=== PATIENT | female | born 1975 | race Caucasian/White ===

== ENCOUNTER 2017-12-28 13:20 | Outpatient (CLI) | payer BC | END 2017-12-28 13:21 | disposition short-term general hospital (02) | LOC: EMS 13:20 | PROVIDERS: ATTEND Surgery | DX: R10.9 Unspecified abdominal pain (principal); R19.5 Other fecal abnormalities; R11.10 Vomiting, unspecified; R73.09 Other abnormal glucose; R00.0 Tachycardia, unspecified | CPT/HCPCS: A0425; A0427 ==

== ENCOUNTER 2018-03-27 17:17 | Outpatient (CLI) | payer BC ==
--- NOTE | 2018-03-27 17:23 | CONSULTATION NOTE ---
Palliative Care Consultation - Referral Referring Provider: Dr. Landon Deleon Time of Visit: [id number] Referral setting: Home (patient with wound vac; significant pain; and to f) Referral Reason: Pain of neoplastic origin/Met Colon Cancer/s/p debridement right hip/thigh - Information Sources Records reviewed: RN notes reviewed, Previous records reviewed History/Review of Systems obtained from: Patient Exam limitations: No limitations - History of Present Illness Brief History of Present Illness: This is a 42-year-old woman with an extensive past surgical history including in 2014 presenting with septis and capillary leak syndrome in 2014, with ischemic bowel requiring a subtotal colectomy with an ileostomy, diagnosis of rectosigmoid adenocarcinoma. She had multiple exploratory laps during her complicated course and eventual closure of her abdominal wound with a reversal of her ileostomy a few months later. She received oxaliplatin and capectabine after, but oxalipaltin was discontinued due to severe neuropathy. She developed recurrent disease in 2016 with 5 lesions in right lobe, and underwent a right hepatectomy with complications including infection/abcess, DVT 's and PE, now on enoxparin. Recived 4 months of irnotecan, capecitabine and Avastin post operatively. She continued with elevated CEA, in 12/2017 there was an attempted resection of adnexal metastasis, but were unresectable because of extensive adhesions. She developed severe abdominal and right thigh pain 02/16 and seen at [facility] and transferred to . She was hospitalized from 02/17-02/26 with delay in discharge due per her report, to obtaining home wound vac and pain control. She was found to hav"perforated viscus in her pelvis that tracked down her right gluteus and thigh". She had a series of procedures to include incisions, debridement, and chi drains, resulting in wounds which are being treated with the main left buttock wound with a wound vac. Patient was receiving a palliative oral treatment TAS-102/Lonsurf for her metastatic colon cancer, but due to the above course these last few weeks it has been on hold. Patient has had significant difficulty with acute on chronic pain, escalating with poor response to her oral opioids as well as escalating anxiety. She does have significant fatigue, appears with depressed symptoms and anxiety, and is anxious to get rid of the wound VAC as well as resume treatment. She does feel she has a good relationship with her oncologist, and sees him in two weeks. She cannot resume treatment given the SE of myelosuppression until off AB and healing more progressed. Medical/Surgical History - Past Medical History Cardiovascular: reports: Pulmonary embolism Respiratory: reports: Shortness of breath Endocrine/Autoimmune: reports: Type 1 diabetes (reports she is "somewhere in between type 1/2" suspect some underlying autoimmune component) GI: reports: Other (prior to this hospitalization was have severe and frequent loose stools, now manageable 4-6 day vs up to 20) HEENT: reports: Other (allergies) Psych: reports: Depression, Anxiety Musculoskeletal: reports: Chronic back pain MRSA Hx?: No - Past Surgical History General: reports: Cholecystectomy, Bowel surgery, Hiatal hernia repair, Liver surgery, Colonoscopy - Substance History Use: Uses substance without health or social issues: Tobacco Social History - Living Situation Living arrangement: At home Living Situation: With spouse/s.o., With family (Lives at home with her , he is currently taking time off as he is quite concerned regarding supporting her and her health. She also has to teenage children currently off for the summer. 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 Her parents live nearby, she has lived in this community for most of her life, does have an extensive support network.) Family History - Family History Family History: Mother: Alive and Well, Father: Alive and Well Medications/Allergies - Medications Home Medications: Ambulatory Orders Medication Instructions Recorded Confirmed Acetaminophen 650 mg PO Q4HR PRN MDD 4000 mg 03/28/18 03/28/18 Enoxaparin [Lovenox] 80 mg SQ DAILY 03/28/18 03/28/18 Hydromorphone HCl 2 - 3 tab PO Q4HR PRN 03/28/18 03/28/18 Insulin Glargine [Lantus Solostar] 5 unit SQ QDBREAKFAST 03/28/18 03/28/18 Insulin Glargine [Lantus Solostar] 18 unit SQ DAILY PM 03/28/18 03/28/18 Insulin Lispro [Humalog Tomy 1 unit SQ AC MDD sliding scale 03/28/18 03/28/18 Kwikpen] Lidocaine [Topicaine 5] 1 applic TOP .MWF 03/28/18 03/28/18 Methadone HCl 5 mg PO BID MDD titrating 03/28/18 03/28/18 Naloxone HCl [Narcan] 1 spray INH PRN PRN 03/28/18 03/28/18 Oxycodone HCl 20 - 40 mg PO Q4HR PRN MDD 10 tabs 03/28/18 03/28/18 traZODone [Desyrel] 50 - 150 mg PO DAILY PM PRN 03/28/18 03/28/18 - Allergies Allergies/Adverse Reactions: Allergies Allergy/AdvReac Type Severity Reaction Status Date / Time Penicillins Allergy Unknown Verified 03/28/18 15:16 quetiapine [From Seroquel] AdvReac Unknown Verified 03/28/18 15:17 Review of Systems - Constitutional Constitutional: reports: Fatigue, Chills (occasional), Other (very thin; reports had gained some wait back 116). denies: Fever - Ears, Nose & Throat Ears, Nose & Throat: reports: Nasal congestion (attributes to allergies) - Cardiovascular Cardiovascular: reports: Decr. exercise tolerance. denies: Chest pain, Lightheadedness - Respiratory Respiratory: reports: Cough (attributes to allergies currently), SOB with exertion. denies: SOB at rest - Gastrointestinal Gastrointestinal: reports: Abdominal pain, Good appetite. denies: Nausea, Reflux/heartburn - Musculoskeletal Musculoskeletal: reports: Back pain, Muscle aches, Muscle weakness - Integumentary Integumentary: reports: Other (wound vac and thigh dressings intact; managed by HH RN; did review pictures does appear to be healing though concern for new sinus tract) - Psychiatric Psychiatric: reports: Depression, Anxiety - Endocrine Endocrine: reports: Other (Diabetes Type I; reports blood sugar at 180 this am) - Hematologic/Lymphatic Hematologic/Lymphatic: reports: Recurrent infections (finished AB for cellulitis in wound) - All Other Systems All Other Systems: reports: Reviewed and negative Physical Exam - Vital Signs Temperature: 98.1 C Pulse Rate: 76 Respiratory Rate: 20 O2 Saturation: 98 (ra @ rest) Blood Pressure: 122/80 - Physical Exam General Appearance: positive: Alert, Moderate distress (patient with escalating pain and discomfort during visit; improved and relaxed after medications though not sedated after 40 mg oxycodone/8 mg hydromorphone), Anxious Eyes Bilateral: positive: Normal inspection ENT: positive: No signs of dehydration Neck: positive: Trachea midline Cardiovascular: positive: Regular rate & rhythm Respiratory: positive: Diminished in bases (left base), Wheezes (exp wheeze mid left) Abdomen: positive: Abnml bowel sounds (some hyperactive), Tenderness, Other ( scarred and with abd. hernias; soft) Skin: positive: Wound (covered with dressings/wound vac), Other (diaz) Extremities: positive: No pedal edema Neurologic/Psychiatric: positive: Oriented x3, Depressed mood/affect (tearful at times) Palliative Care - POLST Patient has POLST: No Pain: Pain worsening, Location (Patient reports escalating pain in right thigh and buttocks area, worsened with days of dressing change, manipulation of wound and application of wound VAC. Has had some improvement with the addition of lidocaine into the wound bed, but still requiring significantly high amounts of opioid. Reports she does have some vague abdominal pain and discomfort, lower back pain chronic in nature. Pain is also worse when she is more active, she does carry the wound VAC around. Reports she has been using oxycodone 20 mg 2 tabs up to 160 mg a day, and the hydrocodone 4 mg tabs up to 24 mg a day. She has escalating pain particularly at night at times, which interferes in her sleep and decreases her ability for tolerating it.She perceives hydrocodone works fairly fast and immediately, and the combination of the oxycodone has an extended duration. She often needs to repeat her pain meds during dressing change despite taking prior to nurses arrival) Tiredness/Fatigue: Moderate (4-6) Drowsiness/Sedation: None Nausea: Mild (1-3) Depression: Moderate (4-6) Anxiety: Severe (7-10) Dyspnea: Mild (1-3) Anorexia: Mild (1-3), Weight loss Sleep: Sleeps poorly Constipation: No Performance Status: Patient is able to ambulate, adjust her own ADLs. She does have difficulty secondary to the wound VAC and pain getting comfortable, is up and down frequently. Does feel some of her strength has returned since surgery, though not back to her baseline. PPS 70% - Palliative Care Discussion: Patient does express feeling overwhelmed related to her medical care and complications over the last several weeks. Her poor pain control has added to her distress, poor sleep patterns, and increased anxiety. Patient does admit to depressive symptoms, she is worried and concerned about her family and their adjustment to her illness. She does appear to have some insight into the seriousness of her illness, though we did not explore prognosis or her understanding. She did explore her fairly dramatic story, and now that she has been through, and concern for what might be ahead. Her goals are to get her pain under control, heal her current wounds, and resume chemotherapy. She does feel like she has good relationship with her oncologist, and long-term relationship with her PCP. Did not explore further any advanced care planning, this appointment was to establish rapport and address her primary concern of pain management Results - Lab Results Lab results reviewed: Yes Lab and Imaging Results: CEA 486.1 03/06 Impression and Recommendations - Palliative Care Impression: This is a jeffy 42-year-old woman with metastatic colon carcinoma, with metastases to the liver since resected in 2016, now with residual adnexal mass, currently on third line palliative oral chemotherapy on hold. She has an extensive history of multiple abdominal surgeries, including history of an ileostomy and several prolonged hospital stays. Her initial diagnosis was in 2014She has most recently been hospitalized for complications of perforation, and right thigh/buttock wounds as a result of debridement for abcess/cellulits/ myositis. Recommendations/Counseling Done: 1. Acute on chronic pain. Patient does attribute most of pain to her wound back and right leg and thigh, would agree most of her acute pain is attributed to this. It is distressful and difficult, she does have high pain tolerance as well as high tolerance for opioids. She does complain of low persistent back pain as well as vague abdominal pain. Given her metastatic disease, residual mass in her abdomen, plus all her adhesions I suspect she does have some background pain that will need continued treatment. She has been escalating her opioid use, I suspect some of this is anxiety as well as acute pain. Patient does not present with any signs or symptoms of infection, but has had a complicated course. Counseling regarding would recommend with titrate her over to methadone, even with wound healing, I suspect she is going to need ongoing opioid support. In agreement to work with palliative care for pain control, current equal analgesic dosing would be around 50 mg of methadone in 24 hours, but given the nature and concern for acute pain will titrate up slowly, and follow course. Patient has been instructed to log and reflect on current pain medication use, has been taking from bottles with little accountability, encouraged to notice patterns and exacerbating factors as well. Will start her slow as the weekend is coming up, at methadone 10 mg tabs half tab=5mg twice daily, and will titrate her more aggressively starting Saturday. Counseling provided regarding opioid safety, including storage, counting the pills on a regular basis, as well as report and working with [employer]PERATOR closely to monitor for side effects, effectiveness, and provide oversight. She is in agreement with this plan verbally, these instructions were written out and sent to her via email, she did acknowledge receiving them. Did provide her with Rx methadone 10 mg tabs # 90; oxycodone 20 mg tabs # 300; hydromorphone 4 mg tabs # 300. Goal to transition to methadone, diminish BTP dosing, and phase out to one medication for BTP dosing in future. 2. Anxiety. This appears multifactorial in origin as well, is concerned about her family and the response to her treatment and cancer. Is exploring options related to counseling through [facility], joint visit with social security benefits interviewer who will assist with locating resources. Patient is expecting to return to work, did encourage given the seriousness of her illness to consider looking at SSI Disabililty. Has many medical bills/co-pays, and decreased income. 3. Depression. Given the length and content of her visit, I will explore this further, patient may benefit from antidepressant or in conjunction with perhaps to Loxitane to help with her pain management. 4. Advanced care planning. This visit was spent on building rapport, focusing on pain management and quality of life issues. Will explore further in the future, patient does have serious illness, on third line chemotherapy, and suspect poor prognosis the patient has been quite resilient and "a fighter". Given the fact her oncology care is of great distance, will benefit from support of palliative care for ongoing pain and symptom management and anticipatory guidance. Time Spent: 90 minutes with greater than 50% of this done in counseling regarding pain and symptom management, establishing rapport, identification of goals of care and anticipatory guidance
== END 2018-03-27 17:18 | disposition home or self-care (01) ==
LOC: PC 17:17
PROVIDERS: ATTEND Nurse Practitioner Adult Health
DX: Z51.5 Encounter for palliative care (principal); G89.29 Other chronic pain; M54.9 Dorsalgia, unspecified; F41.9 Anxiety disorder, unspecified; F32.9 Major depressive disorder, single episode, unspecified; E10.9 Type 1 diabetes mellitus without complications; Z72.0 Tobacco use; Z79.4 Long term (current) use of insulin; Z79.891 Long term (current) use of opiate analgesic; C18.9 Malignant neoplasm of colon, unspecified; C78.7 Secondary malignant neoplasm of liver and intrahepatic bile duct; R19.00 Intra-abdominal and pelvic swelling, mass and lump, unspecified site
CPT/HCPCS: 99345

== ENCOUNTER 2018-04-04 08:00 | Outpatient (CLI) | payer BC ==
[2018-04-04 12:37] LABS: BILIRUBIN,URINE NEGATIVE (NEGATIVE); GLUCOSE, URINE (UA) 250 mg/dL (NEGATIVE); KETONES,URINE (UA) NEGATIVE (NEGATIVE); LEUKOCYTE ESTERASE, URINE NEGATIVE (NEGATIVE); NITRITE,URINE NEGATIVE (NEGATIVE); OCCULT BLOOD,URINE NEGATIVE (NEGATIVE); PROTEIN,URINE TRACE mg/dL (NEGATIVE); UROBILINOGEN,URINE 0.2 (NORMAL) E.U./dL (NORMAL)
[2018-04-04 12:39] LABS: CLARITY,URINE HAZY (CLEAR)
[2018-04-04 13:18] LABS: BACTERIA,URINE Moderate /HPF (None Seen); CRYSTALS,URINE >50 Calcium Oxalate /LPF; RBC,URINE 0-5 /HPF (0-5); SQUAMOUS EPITHELIAL CELL,UR MANY Squamous (<= Few)
== END 2018-04-04 08:01 | disposition home or self-care (01) ==
LOC: LAB.N 08:00
PROVIDERS: ATTEND Nurse Practitioner Adult Health
DX: R30.0 Dysuria (principal)
CPT/HCPCS: 81001; 87086

== ENCOUNTER 2018-04-10 13:10 | Outpatient (CLI) | payer BC ==
--- NOTE | 2018-04-10 19:38 | CONSULTATION NOTE ---
Palliative Care Follow Up - Referral Referring Provider: Dr. Deleon Time of Visit: 4732-5242 Referral setting: Home Referral Reason: Metastatic Colon Cancer/Pain of neoplastic origin - Information Sources Records reviewed: Previous records reviewed History/Review of Systems obtained from: Patient Exam limitations: No limitations - History of Present Illness Update Brief HPI Update: This is a 42-year-old woman with metastatic colon cancer, who has known tumor in her retroperitoneal area of additional adnexal metastases, these were unresectable due to extensive pelvic disease. She was originally treated in 2015 for stage II sigmoid cancer, developed recurrent disease in 2017 with right hepatic metastases, and now has right adnexal mass documented with a failed attempt at resection. In the context of this she also developed in December 2017 pelvic abscess requiring external drains, and diagnosis of myofascial cellulitis/myositis requiring debridement. Patient does have fairly high levels of pain retroperitoneal, reports particularly in her right thigh that has been problematic, though some improvement with removal of the wound VAC but has some fairly inconsistent reporting regarding her opioid use. She reports prior to the removal she was using more than alloted 10/10 for breakthrough pain. Patient was started on methadone, has been titrating up slowly was to be on methadone 10 mg TID, on visit today though has reportedly used her months supply of methadone 10 mg confirmed with ArQule 90# prescribed received 30#, oxycodone 20 mg 300# tabs, and hydromorphone 4 mg #300 tabs. This is over a 15 day period. Discussed patient due to see oncologist on next Saturday, hoping to start her oral chemotherapy medications, though she reports she has "tossed" those out, though it is documented in her records she has the medications for the next cycle. She is hoping to return to work on 05/07 "without" limitations, discussed other treatment options for management of her pain. In agreement to titrate up Methadone to 15 mg TID, with adding 5 mg every few days, adding gabapentin 300 mg TID with titration, and to use only one medication for breakthrough pain. Will add oxycodone 30 mg 1/2-1 tab every three hours for BTP and not to exceed 10 tabs/24 hours. She is to call if need more rapid titration, reviewed concerns regarding opioid safety and need to track medications. Patient without signs of lethargy, noted pin point pupils, pain behaviors with sitting and walking. Had reportedly run out of the methadone yesterday and down to a few tabs of hydromorphone and oxycodone. Social History - Living Situation Living arrangement: At home Living Situation: With spouse/s.o., With family (has two teenage children at home; has not followed up on counseling resources for them) Medications/Allergies - Medications Home Medications: Ambulatory Orders Medication Instructions Recorded Confirmed Acetaminophen 650 mg PO Q4HR PRN MDD 4000 mg 03/28/18 04/11/18 Enoxaparin [Lovenox] 80 mg SQ DAILY 03/28/18 04/11/18 Insulin Glargine [Lantus Solostar] 5 unit SQ QDBREAKFAST 03/28/18 04/11/18 Insulin Glargine [Lantus Solostar] 18 unit SQ DAILY PM 03/28/18 04/11/18 Insulin Lispro [Humalog Tomy 1 unit SQ AC MDD sliding scale 03/28/18 04/11/18 Kwikpen] Methadone HCl 15 mg PO TID MDD titrating 03/28/18 04/11/18 Naloxone HCl [Narcan] 1 spray INH PRN PRN 03/28/18 04/11/18 traZODone [Desyrel] 50 - 150 mg PO DAILY PM PRN 03/28/18 04/11/18 Gabapentin 300 mg PO TID MDD titrating 04/11/18 04/11/18 oxyCODONE [Roxicodone] 15 - 30 mg PO Q3HR MDD 10 tabs 04/11/18 04/11/18 - Allergies Allergies/Adverse Reactions: Allergies Allergy/AdvReac Type Severity Reaction Status Date / Time Penicillins Allergy Unknown Verified 03/28/18 15:16 quetiapine [From Seroquel] AdvReac Unknown Verified 03/28/18 15:17 Review of Systems - Constitutional Constitutional: reports: Fatigue. denies: Fever, Chills - Respiratory Respiratory: denies: Cough - Gastrointestinal Gastrointestinal: reports: Abdominal pain, Abdominal distention, Diarrhea, Nausea, Bloating, Poor appetite - Genitourinary Genitourinary: reports: Other (c/o retention; improved briefly overweekend; some dysuria with only mild improvement with bactrim. Okay in am, worsens through the day) - Musculoskeletal Musculoskeletal: reports: Muscle pain (right leg), Back pain, Stiffness - Integumentary Integumentary: reports: Other (wound vac removed; dressing still needing changed a couple of times a day; reports yellow serous) - Neurological Neurological: denies: Slurred speech - Psychiatric Psychiatric: reports: Depression (tearful), Anxiety - Endocrine Endocrine: reports: Other (diabetes) - Hematologic/Lymphatic Hematologic/Lymphatic: reports: Blood clots (having "hard knots" form at injection sites) - All Other Systems All Other Systems: reports: Reviewed and negative Physical Exam - Vital Signs Temperature: 97.4 C Pulse Rate: 70 Respiratory Rate: 16 O2 Saturation: 94 (ra @ rest) Blood Pressure: 92/64 - Physical Exam General Appearance: positive: Mild distress, Anxious. negative: Lethargic Eyes Bilateral: positive: Normal inspection Neck: positive: No JVD, Trachea midline Cardiovascular: positive: Regular rate & rhythm Respiratory: positive: Diminished in bases. negative: Wheezes, Rales, Rhonchi Abdomen: positive: Tenderness, Guarding (patient quite then; abd. scarring with herniations soft; firm lower abdomen; unclear if firmness ascites or masses; bladder scan limited appears about 80 mls.), Other Skin: positive: Wound (picture of wound with retracted scarring; reports all areas painful and tender to touch;) Extremities: positive: No pedal edema Neurologic/Psychiatric: positive: Oriented x3, Mood/affect nml Palliative Care - POLST Patient has POLST: No Pain: Pain worsening, Location (see HPI) Tiredness/Fatigue: Moderate (4-6) Drowsiness/Sedation: None Nausea: Mild (1-3) Depression: Mild (1-3) Anxiety: Moderate (4-6) Dyspnea: None Anorexia: Mild (1-3) Sleep: Variable sleep pattern Performance Status: Patient able to manage her ADLs, is still doing household tasks. She does have to rest at times regarding the pain. - Palliative Care Discussion: Patient when asked about what she is hoping for with her oncology appointment, is hopeful to resume hemotherapy. She is looking forward to returning to work, it does not seem within her scope of possibilities that she may continue to deteriorate or this may be difficult. She gets very anxious when approached regarding more of a long-term plan. Impression and Recommendations - Palliative Care Impression: This is a 42-year-old woman with metastatic colon cancer, with metastases to the liver since resected in 2017, now has residual metastases in pelvis. Recovering from acute myositis/cellulitis in right thigh. Currently on third line palliative oral chemotherapy which is on hold. She does have an extensive history of multiple abdominal surgeries, and several prolonged hospital stays. Palliative care to provide support for pain and symptom management, trying to discern if patient is having escalating pain or concerns for opioid misuse/ abuse. Recommendations/Counseling Done: 1. Pain of neoplastic origin. Patient does appear to have increased symptoms regarding her disease process including escalating pain, symptoms of urinary retention, increased abdominal pressure and concerns for ascites/mass-effect. Patient's pain currently poorly controlled, unclear reasons for patient's difficulty with medication adherence, will reach out to her other providers to get a sense of her historical use as well as any concerns. Given the above will titrate her over to methadone, increasing to 15 mg 3 times daily, with the addition of gabapentin 300 mg 3 times daily, and single use medication for breakthrough pain. She agreed to the plan of the time of visit. 2. Urinary retention. Concern regarding patient's descriptions, did treat for UTI with Bactrim DS 1 tab twice daily 5 days without much improvement. Reports she is able to void in the a.m., and increased symptoms of retention through the day. Bladder scan did not reveal any significant retention. Did encourage if she had more difficulty to follow-up and get evaluated, concern with high disease burden. 3. Metastatic colon cancer. Will recheck to oncologist, regarding long-term plan. Query whether radiation may be an option as far as assisting with pain management. Patient quite anxious to get started if anything is going to be offered as to be able to not interfere with her work. 4. Advanced care planning. Patient appears very anxious, is putting quite a bit of weight on the upcoming oncology appointment, patient most likely has a fairly poor prognosis and seems to have very little insight into this. Will coordinate with oncology care team. Addendum 04/11/1400; call to oncology office Dr. Collado, he is not available spoke with MATTHEW Sanches. Discussed my concerns regarding escalating pain, and opioid use. She did report patient had requested refill on her hydromorphone and oxycodone yesterday with a overnight joseph period. Will document for the oncology chart to not provide RX, to get through palliative care. Call to reach out to primary care Dr. Deleon as well regarding concerns, he is not available but message left regarding RX to be done by Palliative Care. Query into pharmacy and [facility], they can flag Rx to confirm with provider only. Message left for patient to call to address concerns regarding opiods Rx request from oncologist. Time Spent: 60 minutes with greater than 50% of this done in counseling regarding pain and pain management, instruction on recording medications, review of use of methadone in addition of gabapentin and anticipatory guidance
== END 2018-04-10 13:11 | disposition home or self-care (01) ==
LOC: PC 13:10
PROVIDERS: ATTEND Nurse Practitioner Adult Health
DX: Z51.5 Encounter for palliative care (principal); G89.3 Neoplasm related pain (acute) (chronic); C18.9 Malignant neoplasm of colon, unspecified; C78.7 Secondary malignant neoplasm of liver and intrahepatic bile duct; R33.9 Retention of urine, unspecified; F32.9 Major depressive disorder, single episode, unspecified; E11.9 Type 2 diabetes mellitus without complications; Z79.4 Long term (current) use of insulin; F41.9 Anxiety disorder, unspecified; Z91.14 Patient's other noncompliance with medication regimen
CPT/HCPCS: 99350

== ENCOUNTER 2018-04-21 19:31 | Outpatient (CLI) | payer BC ==
--- NOTE | 2018-04-21 19:32 | CONSULTATION NOTE ---
Palliative Care Follow Up - Referral Referring Provider: Dr. Santosh Deleon Time of Visit: [id number] Referral setting: Home Referral Reason: Pain of neoplastic origin/Met Colon Cancer - Information Sources Records reviewed: Previous records reviewed History/Review of Systems obtained from: Patient Exam limitations: No limitations - History of Present Illness Update Brief HPI Update: This is a 42-year-old woman with metastatic colon cancer who has known tumor in her retroperitoneal area of adnexal medicine metastasis, there was an attempted resection done in December/2017 without success. She was originally treated in 2015 for stage II sigmoid cancer, and developed recurrent disease in 2017 with right hepatic metastasis with resection achieved in the liver. She has had multiple complications along the way, including PEs, and most recently right thigh myofascial cellulitis/myositis requiring debridement and drainage in January 2018. She was recently restarted on her Lonsurf, with significant diarrhea despite opium tincture, she is on her off day so improved today. Her appetite is diminished, she feels she is staying hydrated, and having fluctuating blood sugars. Her right thigh wound continues to improve, but still requires every other day dressings due to drainage. Palliative care seen patient for her underlying acute on chronic pain. Patient does have retroperitoneal pain most likely attributed to her tumor burden, she is currently on methadone 10 mg a.m. and late afternoon, and 50 mg at bedtime. We also initiate gabapentin 300 mg, she was too sedated with a.m. dosing, will diminish dosing 200 mg in the a.m., and 300 mg at bedtime. She is using oxycodone 30 mg tabs 1/2-1 tab for total to 2-3 tabs in 24 hours per her report. Patient also presents with diarrhea, this is abating, she is using the opium tincture though has not been as effective in the past. She denies any nausea at this point in time, but has poor appetite, she also presents with increased symptoms of depression and is willing to consider intervention at this point in time as far as looking at medication. Social History - Living Situation Living arrangement: At home Living Situation: With spouse/s.o., With family (has two teenage children at home) Medications/Allergies - Medications Home Medications: Ambulatory Orders Medication Instructions Recorded Confirmed Acetaminophen 650 mg PO Q4HR PRN MDD 4000 mg 03/28/18 04/22/18 Enoxaparin [Lovenox] 80 mg SQ DAILY 03/28/18 04/22/18 Insulin Glargine [Lantus Solostar] 5 unit SQ QDBREAKFAST 03/28/18 04/22/18 Insulin Glargine [Lantus Solostar] 18 unit SQ DAILY PM 03/28/18 04/22/18 Insulin Lispro [Humalog Tomy 1 unit SQ AC MDD sliding scale 03/28/18 04/22/18 Kwikpen] Methadone HCl 10 mg PO . AM 1400 MDD titrating 03/28/18 04/22/18 Naloxone HCl [Narcan] 1 spray INH PRN PRN 03/28/18 04/22/18 traZODone [Desyrel] 50 - 150 mg PO DAILY PM PRN 03/28/18 04/22/18 Gabapentin 300 mg PO QPM MDD titrating 04/11/18 04/22/18 oxyCODONE [Roxicodone] 15 - 30 mg PO Q3HR MDD 10 tabs 04/11/18 04/22/18 Gabapentin 100 mg PO DAILY 04/22/18 04/22/18 Methadone HCl 15 mg PO QPM 04/22/18 04/22/18 Escitalopram [Lexapro] 5 mg PO DAILY 04/23/18 04/23/18 Opium Tincture 3 ml PO BID PRN 04/23/18 04/23/18 Trifluridine/Tipiracil HCl 1 tab PO .BID 5 DAYS ON 2 OFF 04/23/18 04/23/18 [Lonsurf 15 mg-6.14 mg Tablet] - Allergies Allergies/Adverse Reactions: Allergies Allergy/AdvReac Type Severity Reaction Status Date / Time Penicillins Allergy Unknown Verified 03/28/18 15:16 quetiapine [From Seroquel] AdvReac Unknown Verified 03/28/18 15:17 Review of Systems - Constitutional Constitutional: reports: Fatigue, Poor appetite, Weight loss (121.3; last week at md office 130) - Ears, Nose & Throat Ears, Nose & Throat: denies: Mouth lesions - Cardiovascular Cardiovascular: reports: Decr. exercise tolerance - Gastrointestinal Gastrointestinal: reports: Diarrhea (severe diarrhea over last week; Lonsurf off two days and diarrhea better today), Early satiety. denies: Nausea - Genitourinary Genitourinary: denies: Dysuria - Musculoskeletal Musculoskeletal: reports: Muscle aches, Stiffness - Integumentary Integumentary: reports: Other (continued with wound packing; drainage down small opening) - Psychiatric Psychiatric: reports: Depression, Anxiety - Endocrine Endocrine: reports: Diabetes type 2 (continues to have fluctuating BS this last week from 349-49; reports does not get symptomatic with hypoglycemia;is not interested in monitor alert system) Physical Exam - Vital Signs Temperature: 97.2 C Pulse Rate: 74 Respiratory Rate: 18 Blood Pressure: 105/74 (RN visit earlier) - Physical Exam General Appearance: positive: No acute distress, Anxious. negative: Lethargic Eyes Bilateral: positive: Normal inspection ENT: positive: No signs of dehydration Neck: positive: No JVD, Trachea midline Cardiovascular: positive: Regular rate & rhythm Respiratory: positive: No respiratory distress, Wheezes (expiratory wheeze Left upper lobe) Abdomen: positive: Soft, Other (mild distension and feeling of fullness on exam ; midline abd hernia soft; swellings and scar tissue with lovenox; may change to arms) Skin: positive: Dryness Extremities: positive: No pedal edema Neurologic/Psychiatric: positive: Oriented x3, Depressed mood/affect (tearful through visit) Comments/Other: appears more cachetic with more muscle wasting in extremities and temporal wasting; Palliative Care - POLST Patient has POLST: No Pain: Pain improved, Location (wound site improving but still sore; discomfort with sitting and uri prominences; lower pelvic/retro pain currently controlled ;) Tiredness/Fatigue: Moderate (4-6) Drowsiness/Sedation: Mild (1-3) Nausea: None Depression: Moderate (4-6) Anxiety: Moderate (4-6) Dyspnea: Mild (1-3) Anorexia: Moderate (4-6), Weight loss Sleep: Sleep improved Constipation: No Performance Status: Patient does admit to fatigue, though is still independent in all her ADLs, and continues to clean her house and do household tasks. She does feel she is going to be able to tolerate though being at school, there are frequent rest periods, she did get in a chair with lumbar support. Encouraged to pace herself. - Palliative Care Discussion: Patient does present with multiple stressors, including financial, returning to work, and family issues. She is quite tearful through her visit, reports her is afraid of her dying, but on the flip side she says she only has stage II colon cancer. When asked what her understanding of her disease, she has not revealed any planning or insight into the severity of her illness. She says she is more afraid of an ileostomy, then of dying. When explored her understanding from her oncologist, reports the plan is continuing to treat and will recheck in 3 months, when asked about the expectations from treatment she does not know. Has not made any advanced care planning, will continue to explore this, will reach out to oncologist about information has share prior to further exploring this with her, very fragile and anxious, continue establishing rapport. Impression and Recommendations - Palliative Care Impression: This is a 42-year-old woman with metastatic colon cancer, with metastases to the liver s/p resection, adnexal metastases, currently on oral chemotherapy lonsurf. Pain management is much improved, wounds are healing, presents with high symptom burden and side effects of oral chemotherapy. Palliative care to provide support for pain and symptom management. Recommendations/Counseling Done: 1. Pain of neoplastic origin. Patient is tolerating and satisfied with current plan of methadone 10 mg a.m. 10 mg 1400, and 50 mg at bedtime. Will initiate gabapentin 100 mg in the a.m. she will hold if sedated. And continue gabapentin 300 mg at bedtime. Currently her pain is fairly well managed.Given the complexity of concerns regarding her opioid use and prescriptions, pill count was done for her oxycodone with 100 left account. Counseling provided regarding safe opioid storage, will continue pill counts, and patient to continue to log use. Patient acknowledges understanding, will further define pain treatment plan for signature. 2. Depression. Noted counseling provided regarding normalizing patient's grief and stressors expressed, did agree she is quite more tearful and persistent in her depressive symptoms. Counseling regarding SSRIs in the concern regarding adding to her diarrhea. We will try and initiate escitalopram 5 mg, will increase if patient tolerates it without undue increase in her diarrhea. 3. Weight loss. Patient has lost 6-7 pounds over the week, this can be attributed some to her diarrhea. She does appear much more cachectic. Her anorexia is worse, she is eating at the time of her visit. She is somewhat limited as far as being able to use supplements because of her diabetes. Encouraged to try small frequent meals. 4. Right thigh wound. Does appear to be healing without signs or symptoms of infection, pain has decreased dramatically. Home health care nursing continue to provide support. 5. Advanced care planning. Patient does present with advanced disease, she is on palliative treatment, am concerned about her expression as far as underlying disease process and poor prognosis. Have left message with her oncologist, would like to present a united front on the information provided as well as given the ages of her children and family stressors, start to prepare for her end-of-life event. Time Spent: 60 minutes with getting 50% this done in counseling regarding opioid safety storage pain management management of depression, and anticipatory guidance
== END 2018-04-21 19:32 | disposition home or self-care (01) ==
LOC: PC 19:31
PROVIDERS: ATTEND Nurse Practitioner Adult Health
DX: Z51.5 Encounter for palliative care (principal); G89.3 Neoplasm related pain (acute) (chronic); C18.9 Malignant neoplasm of colon, unspecified; C78.7 Secondary malignant neoplasm of liver and intrahepatic bile duct; C79.82 Secondary malignant neoplasm of genital organs; Z79.899 Other long term (current) drug therapy; F32.9 Major depressive disorder, single episode, unspecified; R63.0 Anorexia; E11.9 Type 2 diabetes mellitus without complications; Z79.4 Long term (current) use of insulin; R19.7 Diarrhea, unspecified; F41.9 Anxiety disorder, unspecified
CPT/HCPCS: 99350

== ENCOUNTER 2018-05-06 13:30 | Outpatient (CLI) | payer BC ==
--- NOTE | 2018-05-06 18:18 | CONSULTATION NOTE ---
Palliative Care Follow Up - Referral Referring Provider: Dr. Santosh Deleon Time of Visit: 9870-7947 Referral setting: Home Referral Reason: Pain of neoplastic origin/Met. Colon Cancer - Information Sources Records reviewed: Previous records reviewed History/Review of Systems obtained from: Patient Exam limitations: No limitations - History of Present Illness Update Brief HPI Update: This is a 42-year-old woman with metastatic colon cancer is known tumor in her retroperitoneal area of DEXA normal metastases, there was an attempted resection done in December 2017 without success. She was originally treated in 2015 for stage II sigmoid cancer, she developed recurrent disease in 2017 with right hepatic metastases and resection achieved in the liver. She has had multiple complications including PEs, most recently right thigh myofascial cellulitis requiring debridement and drainage in January 2018. This continues to slowly heal, she did have a wound VAC at one point, now she is receiving had dressing changes every 24-30 hours. She is on Lonsurf oral chemotherapy, she is currently off. She did have significant diarrhea her last round with up to 15 episodes per report despite immodium/opium tincture, and needed to cut it a day short. Her bowels have come back into balance, she is been as low as 107, she reports today her weight to 110. She still appears quite thin and cachectic, that is working very hard to put on back her weight with supplements and increasing calories. This is a double-edged sword because with increasing food often increases diarrhea secondary to her multiple abdominal surgeries. 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 Unfortunate that point in time she had stopped, she was on methadone 10 AM 10 late afternoon and 15 at bedtime. She is also on gabapentin 300 mg in the p.m., and down to 100 mg in the a.m. secondary sedation. She reports she has been having improvement as far as her overall pain particularly in her right thigh, she was quite terrified of not being able to go to work, and essentially quit almost cold turkey. Despite this she reports she has had no signs or symptoms of withdrawal, though methadone is long acting and has tolerated without significant escalation of her pain. She is more uncomfortable sitting on the "tailbone" and does demonstrate pain behaviors of shifting and difficulty getting comfortable. She has used some intermittent oxycodone 15 mg for increasing right thigh discomfort since discontinuing the methadone. She is continuing on the gabapentin 300 mg in the evening, has dropped the a.m. dosing that she does need to be awake and alert. She is still needing the opium tincture, she uses 4 mils early a.m., this is to control her bowels, she has not needed to repeat it this afternoon, but is often taking it twice a day to manage her diarrhea. Social History - Living Situation Living arrangement: At home Living Situation: With spouse/s.o., With family Support System: She reports she has supportive friends and family, she does have 2 teenagers at home. Continues to experience multiple stressors. Medications/Allergies - Medications Home Medications: Ambulatory Orders Medication Instructions Recorded Confirmed Acetaminophen 650 mg PO Q4HR PRN MDD 4000 mg 03/28/18 05/06/18 Enoxaparin [Lovenox] 80 mg SQ DAILY 03/28/18 05/06/18 Insulin Glargine [Lantus Solostar] 5 unit SQ QDBREAKFAST 03/28/18 05/06/18 Insulin Glargine [Lantus Solostar] 18 unit SQ DAILY PM 03/28/18 05/06/18 Insulin Lispro [Humalog Tomy 1 unit SQ AC MDD sliding scale 03/28/18 05/06/18 Kwikpen] Naloxone HCl [Narcan] 1 spray INH PRN PRN 03/28/18 05/06/18 traZODone [Desyrel] 50 - 150 mg PO DAILY PM PRN 03/28/18 05/06/18 Gabapentin 300 mg PO QPM MDD titrating 04/11/18 05/06/18 oxyCODONE [Roxicodone] 15 - 30 mg PO Q3HR MDD 10 tabs 04/11/18 05/06/18 Opium Tincture 4 - 6 ml PO BID PRN 04/23/18 05/06/18 Loperamide [Imodium] 4 mg PO QID PRN 05/06/18 05/06/18 - Allergies Allergies/Adverse Reactions: Allergies Allergy/AdvReac Type Severity Reaction Status Date / Time Penicillins Allergy Unknown Verified 03/28/18 15:16 quetiapine [From Seroquel] AdvReac Unknown Verified 03/28/18 15:17 Review of Systems - Constitutional Constitutional: reports: Fatigue (improved), Weight loss (110) - Ears, Nose & Throat Ears, Nose & Throat: reports: Nasal congestion, Other (ear stuffiness; used claritin for several days with some relief) - Cardiovascular Cardiovascular: reports: Decr. exercise tolerance - Respiratory Respiratory: denies: SOB at rest - Gastrointestinal Gastrointestinal: reports: Diarrhea, Other (improved appetite; taste changes improving). denies: Nausea - Musculoskeletal Musculoskeletal: reports: Back pain, Stiffness, Muscle weakness - Integumentary Integumentary: reports: Other (right thigh wound packed lightly with gauze, reports perception of increased drainage; some blood tinged) - Psychiatric Psychiatric: reports: Anxiety (regarding need to return to work) - Endocrine Endocrine: reports: Diabetes type 2 - All Other Systems All Other Systems: reports: Reviewed and negative Physical Exam - Vital Signs Temperature: 96.4 C Pulse Rate: 76 Respiratory Rate: 18 O2 Saturation: 98 (hands cool ) Blood Pressure: 92/58 - Physical Exam General Appearance: positive: Mild distress, Anxious Eyes Bilateral: positive: Normal inspection ENT: positive: No signs of dehydration Neck: positive: Trachea midline Cardiovascular: positive: Regular rate & rhythm Respiratory: positive: Breath sounds nml. negative: Wheezes Abdomen: positive: Soft, Other (swelling at lovenox sites; hernias soft) Skin: positive: Wound (HH to measure seeing patient regularly 2x week, to decrease to weekly) Extremities: positive: No pedal edema Neurologic/Psychiatric: positive: Oriented x3, Other (anxious) Palliative Care - POLST Patient has POLST: No Pain: Pain improved, Location (lower pelvis; now only in tailbone-more uncomfortable with sitting; weaned off herself quickly despite warnings of withdrawal; does appear to have tolerated; Pill count reviewed; right thigh more uncomfortable-suspect more active with working and off methadone) Tiredness/Fatigue: Moderate (4-6) Drowsiness/Sedation: Mild (1-3) (improved) Nausea: None Depression: Mild (1-3) (stopped antidepressant as worried adding to diarrhea) Anxiety: Moderate (4-6) Dyspnea: None Anorexia: Moderate (4-6), Weight loss Sleep: Variable sleep pattern Constipation: No - Palliative Care Discussion: Had spoken to oncologist, reports he has talk to the patient that this treatment is palliative in nature and not much more to offer after this. Unclear prognosis, but is limited life expectancy, has not specifically talked to the patient about this. Did share with him my experience so far as patient does not understand the seriousness of her illness, she has had significant weight loss, and high symptom burden. 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 She is planning her life for the next 10+ years, no where in the conversation was there any awareness of her future decline. Did ask her her current understanding of her illness, she reports she is "a stage II", she has been looking online, she reports she has tried all the treatments that were listed for it, I did encourage her to speak further with her oncologist about expectations regarding the chemotherapy, and what to expect. Shared my worries about planning for the future, patient does not appear to have any insight into the seriousness of her current situation. Difficult to push through and line of defense, hoping oncologist with next visit will help her understand his current goals, so we can further define hers. Impression and Recommendations - Palliative Care Impression: This is a 42-year-old woman with metastatic colon cancer, with metastases to the liver status post resection, adnexal metastases, currently on palliative chemotherapy. Patient with multiple stressors, needing to work, did stop her opioids as a requirement, thus far seems to be tolerating without any undue effects or withdrawal symptoms. Patient presents with very poor insight into her current condition, high anxiety and cachexia. Palliative care to continue to try to establish rapport to assist with advanced care planning, management of symptoms, and support given her high anxiety. Recommendations/Counseling Done: 1. Pain of neoplastic origin. Patient's underlying etiology with her right thigh wound improving pain has improved. Unclear if her retroperitoneal pain has improved because of her treatment, or if tolerating better patient does have pain behaviors at time of visit, she is quite determined though to remain off her opioids to be able to work. Instructed to use her gabapentin 300 mg at bedtime, she can use 100 mg when she gets home from school, may need to revisit opioid dosing in the context of her situation. Currently does appear to be tolerating, does have both methadone and oxycodone in the home if needs to restart. 2. Diarrhea. Patient is using the opium tincture for mils in the a.m. with good control, she did have severe diarrhea with her last oral chemotherapy. She had not contacted me regarding the severity of this, did discuss in the context of moving forward scheduling her Imodium 4 mg 4 times a day, using her tincture scheduled twice a day, and if this is ineffective consider adding Lomotil in alternating doses with Imodium. Patient does present with weight loss, this was more rapid after each chemotherapy round. She is working on her nutrition. 3. Depression. Had started patient per her request on antidepressant, concerned it was adding to her diarrhea, currently on hold. Patient does present with severe anxiety, multiple stressors both family and in the context of returning to work. Is looking forward though is she does have good support, and this does make her feel "more normal", is hoping that she will be able to tolerate that activity. 4. Right thigh wound. Does seem to be somewhat and is still made, patient without fever or chills, some slightly bloody drainage, home health nurse instructed to culture if of concerns. Discussed would like to avoid antibiotics if possible given her history of diarrhea and multiple antibiotics. Since that back pain is actually increased because of increased activity and coming off her methadone. 5. Advanced care planning. Did try to explore with patient's current understanding of her illness, unclear for defenses are denial is up, but does not perceive herself as receiving palliative chemotherapy, or at risk for future decline in the near future. Had reached out to oncologist to try and help patient with some understanding of her prognosis, she does have 2 teenage children, and would most likely need to do some more planning around this if given the opportunity. Will continue to work with patient on symptom management and explore these issues as patient allows. Time Spent: 45 minutes with greater than 50% of this done in counseling regarding pain and symptom management and attempt at anticipatory guidance.
== END 2018-05-06 13:31 | disposition home or self-care (01) ==
LOC: PC 13:30
PROVIDERS: ATTEND Nurse Practitioner Adult Health
DX: Z51.5 Encounter for palliative care (principal); G89.3 Neoplasm related pain (acute) (chronic); C18.7 Malignant neoplasm of sigmoid colon; C78.7 Secondary malignant neoplasm of liver and intrahepatic bile duct; C78.6 Secondary malignant neoplasm of retroperitoneum and peritoneum; C79.82 Secondary malignant neoplasm of genital organs; K52.1 Toxic gastroenteritis and colitis; T45.1X5A Adverse effect of antineoplastic and immunosuppressive drugs, initial encounter; F32.9 Major depressive disorder, single episode, unspecified; F41.9 Anxiety disorder, unspecified; T81.89XD Other complications of procedures, not elsewhere classified, subsequent encounter; R64 Cachexia; E11.9 Type 2 diabetes mellitus without complications; Z86.711 Personal history of pulmonary embolism; Z79.899 Other long term (current) drug therapy; Z79.891 Long term (current) use of opiate analgesic; Z79.4 Long term (current) use of insulin; Z63.79 Other stressful life events affecting family and household
CPT/HCPCS: 99349

== ENCOUNTER 2018-05-27 14:36 | Outpatient (CLI) | payer BC ==
--- NOTE | 2018-05-27 18:20 | CONSULTATION NOTE ---
Palliative Care Follow Up - Referral Referring Provider: Dr. Landon Deleon Time of Visit: [id number] Referral setting: [facility] [place] Referral Reason: Met Colon Cancer - Information Sources Records reviewed: Previous records reviewed History/Review of Systems obtained from: Patient Exam limitations: No limitations - History of Present Illness Update Brief HPI Update: This is a 42-year-old woman who has quite a complex history related to her metastatic colon cancer. 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 She is currently undergoing treatment with [id number], which she is restarted on Saturday, with less diarrhea than previously. She reports she is tolerating this well. Patient presents with ongoing diffuse abdominal pain, with acute on chronic pain in her right hip exacerbated by movement and stretching of the scar tissue. She did have difficulty with pain control in her hospitalization, reports her pain today at a 6 out of 10. She continues to overuse her pain medications, she had restarted after had quit for work without notifying me and used scripts from oncologist I had asked her to destroy, she had run out as I had not renewed and continued on 6-8 doses of breakthrough pain medication which escalated with pending SBO. She is very anxious about pending concerns may not have insurance after end of month. She reports she has been eating, with no nausea or vomiting, her bowels have been moving, she still has some residual abdominal distention, but no acute tenderness. She declined home health care for her right hip, drainage has been minimal, she is changing the dressing by herself. Palliative care to continue to provide support for pain and symptom management. Social History - Living Situation Living arrangement: At home Living Situation: With spouse/s.o., With family (has two teenage children; currently taken a leave from work related to fatigue; lost her health care insurance, reports signed up for [employer] for next month worried about the transition and who will be available on her plan; she picked it for VM) Medications/Allergies - Medications Home Medications: Ambulatory Orders Medication Instructions Recorded Confirmed Enoxaparin [Lovenox] 80 mg SQ DAILY 03/28/18 05/28/18 Insulin Glargine [Lantus Solostar] 5 unit SQ QDBREAKFAST 03/28/18 05/28/18 Insulin Glargine [Lantus Solostar] 18 unit SQ DAILY PM 03/28/18 05/28/18 Insulin Lispro [Humalog Tomy 2 - 8 unit SQ AC MDD sliding scale 03/28/18 05/28/18 Kwikpen] Naloxone HCl [Narcan] 1 spray INH PRN PRN 03/28/18 05/28/18 traZODone [Desyrel] 150 mg PO DAILY PM PRN 03/28/18 05/28/18 Gabapentin 400 mg PO QPM MDD titrating 04/11/18 05/28/18 oxyCODONE [Roxicodone] 15 - 30 mg PO Q3HR MDD 8/tabs 04/11/18 05/28/18 Opium Tincture 4 - 6 ml PO BID PRN 04/23/18 05/28/18 Loperamide [Imodium] 4 mg PO QID PRN 05/06/18 05/28/18 Methadone HCl 10 mg PO BID 05/28/18 05/28/18 Trifluridine/Tipiracil HCl 1 tab PO BID 05/28/18 05/28/18 [Lonsurf 15 mg-6.14 mg Tablet] - Allergies Allergies/Adverse Reactions: Allergies Allergy/AdvReac Type Severity Reaction Status Date / Time Penicillins Allergy Unknown Verified 03/28/18 15:16 quetiapine [From Seroquel] AdvReac Unknown Verified 03/28/18 15:17 Review of Systems - Constitutional Constitutional: reports: Fatigue, Weight gain (126.7) - Cardiovascular Cardiovascular: reports: Decr. exercise tolerance - Respiratory Respiratory: reports: Wheezing (attributes to allergies), SOB with exertion, Other (smoking again). denies: SOB at rest - Gastrointestinal Gastrointestinal: reports: Abdominal pain, Abdominal distention, Diarrhea (on oral chemotherapy; going 3-4 times a day not needing immodium at this time), Bloating, Early satiety, Good appetite, Other (recent SBO). denies: Nausea, Vomiting, Reflux/heartburn - Musculoskeletal Musculoskeletal: reports: Muscle pain (right hip), Stiffness, Muscle weakness - Integumentary Integumentary: reports: Other (continues with surgical wound) - Neurological Neurological: reports: General weakness - Psychiatric Psychiatric: denies: Depression - Endocrine Endocrine: reports: Other (diabetes type 1 reports keeping bs around 128; few episodes or both high and low) - All Other Systems All Other Systems: reports: Reviewed and negative Physical Exam - Vital Signs Temperature: 98.9 C Pulse Rate: 81 Respiratory Rate: 18 Blood Pressure: 104/70 - Physical Exam General Appearance: positive: No acute distress, Alert Eyes Bilateral: positive: Normal inspection ENT: positive: No signs of dehydration Neck: positive: No JVD, Trachea midline Cardiovascular: positive: Regular rate & rhythm Respiratory: positive: Wheezes (expiratory wheezes LLL; no cough; attributes to allergies) Abdomen: positive: Abnml bowel sounds (hyperactive), Tenderness, Distended (right quadrant hernia area) Skin: positive: Wound (scarred and dimpled inwards still small opening of 4 cm incision with eschar base; drainage light yellow; had "closed" over hospitalizat ion) Extremities: positive: No pedal edema Neurologic/Psychiatric: positive: Oriented x3, Mood/affect nml Palliative Care - POLST Patient has POLST: No Pain: Pain improved, Location (Describes diffuse abdominal pain with increased intensity at where small bowel obstruction is right upper quadrant. This can fluctuate through the day, still has significant right hip pain, particularly when she is more active and stretches are ambulates the area of scarring and surgical incision. She reports she has used all her breakthrough pain medication sent home from the hospital, which included hydromorphone and oxycodone. She did initiated methadone 5 mg 3 times daily, had increased this to 10 mg 3 times a day on Saturday, agreed will decrease to 10 mg BID.) Tiredness/Fatigue: Severe (7-10) Drowsiness/Sedation: None Nausea: Mild (1-3) Depression: Mild (1-3) Anxiety: Mild (1-3) Dyspnea: None Anorexia: Mild (1-3) Sleep: Sleeps poorly (pain worse at night; used trazadone 150 mg and gabapentin 300 mg; will increase to 400 mg at bedtime) Constipation: No Feelings of wellbeing/Perceived Quality of Life: Good, Acceptable, Improved Performance Status: Patient though describes significant activity fatigue, continues to be quite active in her home setting. She is able to do household tasks and attend her own ADLs. She has difficulty pacing her activities and often crashes after she has overdone it. - Palliative Care Discussion: This patient so presents with poor insight into her severity of her disease, though she is interested in exploring other extended treatment options, including clinical trials. She continues to focus on "being a stage II", despite being recently in the hospital, with ongoing complications related to her disease. She does get very frustrated with the hospitalizations, and I suspect some of this is related to her ongoing high opioid tolerance, and negotiating with how best to manage her acute exacerbations. She is had increased financial stressors without working, including the unknowns of transitioning to her new insurance through [employer]. Impression and Recommendations - Palliative Care Impression: This is a 42-year-old woman who continues to be quite complex, now presenting most recent with a small bowel obstruction related to her metastatic colon cancer. She still has some residual abdominal tenderness, but no nausea and vomiting, pain is improved. She continues with residual pain and discomfort in her right hip status post debridement in January secondary to infection. Her goals continue to be to actively pursued treatment for extension of quantity of life and focus on her family. Palliative care to provide ongoing support regarding pain and symptom management. Recommendations/Counseling Done: 1. Acute on chronic pain. Patient has been counseled again on her pain agreement, she is to use only one pharmacy and one prescriber. *She does present with concerns for opioid use disorder, did review her prescription monitoring program entries, regarding ongoing concerns. In agreement with patient of what is a reasonable upcoming pain program, patient will continue on the methadone at 10 mg twice daily, oxycodone 30 mg tablets 1/2-1 tab, in agreement not to exceed 6 tabs, if escalating to call for increase in methadone. *She is to log and bring in pills for pill count wit each visit, she is in agreement. She is locking and starting her opioids in a lock box, and will meet every 2 weeks to titrate medications as well as review contract and pill counts. RX for oxycodone was written for 8 tabs related to her concern for insurance issues. 2. Small bowel obstruction. Patient does present still with mild obstructive symptoms, of some distention, pain, and hyperactive bowel tones. She is also has restarted her oral chemotherapy. Counseled on use of bowel meds if needed, she does have MiraLAX at home. She has managed in the past with intermittent obstructive symptoms, she is at high risk for this sequela of obstructing again. 3. Metastatic colon cancer. Patient is on palliative chemotherapy, continues to have limited insight to the seriousness of her illness, did discuss in the context of treatment options, she would like to pursue a second opinion, did recommend given her current situation that this would not be unacceptable to her oncologist. [facility] does have access to multiple clinical trials, she is awaiting the outcome of her insurance, but will look into pursuing.Her goals remain to live as long as possible, again does not show any insight into her limited life expectancy. When asked her understanding from her oncologist, she reports "he told me I only have stage II" and that there was not more chemotherapy to add to her current regimen, "he thinks I doing well". Time Spent: 60 minutes with greater than 50% of this done in counseling coordination of care regarding pain and symptom management. Addendum;* added counseling regarding [employer] program follow-up on 05/28, instruction s integrated into note
== END 2018-05-27 14:37 | disposition home or self-care (01) ==
LOC: PC 14:36
PROVIDERS: ATTEND Nurse Practitioner Adult Health
DX: Z51.5 Encounter for palliative care (principal); G89.28 Other chronic postprocedural pain; K56.50 Intestinal adhesions [bands], unspecified as to partial versus complete obstruction; C18.7 Malignant neoplasm of sigmoid colon; C78.7 Secondary malignant neoplasm of liver and intrahepatic bile duct; C79.70 Secondary malignant neoplasm of unspecified adrenal gland; N73.6 Female pelvic peritoneal adhesions (postinfective); T81.89XD Other complications of procedures, not elsewhere classified, subsequent encounter; K63.2 Fistula of intestine; K52.1 Toxic gastroenteritis and colitis; T45.1X5A Adverse effect of antineoplastic and immunosuppressive drugs, initial encounter; M31.8 Other specified necrotizing vasculopathies; E10.9 Type 1 diabetes mellitus without complications; Z79.01 Long term (current) use of anticoagulants; Z79.4 Long term (current) use of insulin; Z90.49 Acquired absence of other specified parts of digestive tract; Z79.899 Other long term (current) drug therapy; Z72.0 Tobacco use; Z79.891 Long term (current) use of opiate analgesic
CPT/HCPCS: 99215

== ENCOUNTER → 2018-06-10 | Outpatient (CLI) | payer MEDICAID | LOC: PC 11:00 | PROVIDERS: ATTEND Nurse Practitioner Adult Health | DX: Z53.9 Procedure and treatment not carried out, unspecified reason (principal) ==

== ENCOUNTER 2018-06-12 13:00 | Outpatient (CLI) | payer BC, MEDICAID ==
--- NOTE | 2018-06-12 17:11 | CONSULTATION NOTE ---
Palliative Care Follow Up - Referral Referring Provider: Dr. Santosh Deleon Time of Visit: 1-2 pm Referral setting: Home (Patient is seen at home secondary is a taxing considerable effort for the patient leave the home, recently in the ED last night, severe pain secondary to hemorrhoids unable to make appointment.) Referral Reason: Pain of neoplastic origin/Advanced Colon Cancer - Information Sources Records reviewed: Previous records reviewed History/Review of Systems obtained from: Patient Exam limitations: No limitations - History of Present Illness Update Brief HPI Update: This is a 42-year-old woman who presents with a complex history related to her metastatic colon cancer, concerns regarding opioid use disorder, recent hospitalization for small bowel obstruction and right upper quadrant, and now on palliative treatmen of TAS-102. She developed severe diarrhea for over a week of > than 10 stools a day despite maximizing immodium/lomotil 4-6 doses in 24 hours. Patient has known dumping syndrome but started having not only her regular diarrhea despite medications, but nocturnal diarrhea "every 20 minutes" as well. As a result she is developed a severe hemorrhoid, reports pain is like "shards of glass" with diarrhea. This started the weekend before. This is required 2 ED visits, with the need for fluids, and IV pain medication. She has tried multiple topical treatments including lidocaine, hydrocortisone cream, sitz bath, and repositioning. She finally stopped the oral chemotherapy yester day. She has been prescribed through the ED prednisone 50 mg x 5 days in attempt to address her rectal pain from the hemmorhoid which was visualized by ED provider but no internal exam done/nor bleeding noted. Patient has again progressed with further weight loss, today she weighs 112 pounds, she has been down as low as 110 this week, when she saw the oncologist on 06/03 she was down to 117. Patient is distressed and has continued to escalate her opioid use, she is on at baseline methadone 10 mg twice daily, has oxycodone 30 mg tabs at baseline has been using about 3 total tabs a day; this last week closer to 6-8 tabs. She is quite distressed as she had want to go to [facility] about the hemorrhoid, but was told because of her pain contract she would not receive any pain medications down there. This was not the intent to the contract we reviewed that she can receive emergency intervention and inpatient support given the complexity of her illness, but she is not to have any outpatient medications filled or titration by outside providers without consult with palliative care. Her intent and following up with [facility] was in the context of if she could have it surgically addressed are dealt with. Patient tends to be very independent and run her own show, and can push the limits as has been managing her own health care through the last few years. She does not like to talk about the implications of her cancer, nor about her future and gets very anxious about talking about this and shuts the conversation down. Patient presents with symptoms of continued dehydration, having difficulty getting enough food and fluids secondary to her dumping syndrome and chemotherapy induced diarrhea. She does report it has slowed down since she has stopped the oral chemotherapy, and has had only 3 stools today. She does appear quite dry though with a blood pressure of 88/48 pulse of 82. Social History - Living Situation Living arrangement: At home Living Situation: With spouse/s.o., With family (Has 2 teenage children at home, reports she is "on leave" from work. She plans to return in October yet again. When pressed for what the threshold of this would be or look like, she just feels at this point in time she again cannot tolerate it with her active treatment.) Medications/Allergies - Medications Home Medications: Ambulatory Orders Medication Instructions Recorded Confirmed Enoxaparin [Lovenox] 80 mg SQ DAILY 03/28/18 06/13/18 Insulin Glargine [Lantus Solostar] 5 unit SQ QDBREAKFAST 03/28/18 06/13/18 Insulin Glargine [Lantus Solostar] 18 unit SQ DAILY PM 03/28/18 06/13/18 Insulin Lispro [Humalog Tomy 2 - 8 unit SQ AC MDD sliding scale 03/28/18 06/13/18 Kwikpen] Naloxone HCl [Narcan] 1 spray INH PRN PRN 03/28/18 06/13/18 traZODone [Desyrel] 150 mg PO DAILY PM PRN 03/28/18 06/13/18 Gabapentin 400 mg PO QPM MDD titrating 04/11/18 06/13/18 oxyCODONE [Roxicodone] 15 - 30 mg PO Q3HR MDD 8/tabs 04/11/18 06/13/18 Opium Tincture 4 - 6 ml PO BID PRN 04/23/18 06/13/18 Loperamide [Imodium] 4 mg PO QID PRN 05/06/18 06/13/18 Methadone HCl 10 mg PO BID 05/28/18 06/13/18 Trifluridine/Tipiracil HCl 1 tab PO .ON HOLD 05/28/18 06/13/18 [Lonsurf 15 mg-6.14 mg Tablet] Diphenoxylate/Atropine [Lomotil] 1 tab PO QID PRN 06/13/18 06/13/18 predniSONE [Prednisone] 50 mg PO .DAILY X 5 06/13/18 06/13/18 - Allergies Allergies/Adverse Reactions: Allergies Allergy/AdvReac Type Severity Reaction Status Date / Time Penicillins Allergy Unknown Verified 03/28/18 15:16 quetiapine [From Seroquel] AdvReac Unknown Verified 03/28/18 15:17 Review of Systems - Constitutional Constitutional: reports: Fatigue, Weakness, Poor appetite, Weight loss (112). denies: Fever - Cardiovascular Cardiovascular: reports: Lightheadedness, Decr. exercise tolerance - Respiratory Respiratory: reports: SOB with exertion. denies: SOB at rest - Gastrointestinal Gastrointestinal: reports: Diarrhea, Change in bowel habits, Bloating, Poor appetite, Early satiety. denies: Nausea, Reflux/heartburn - Musculoskeletal Musculoskeletal: reports: Limited range of motion, Muscle weakness - Integumentary Integumentary: reports: Dryness - Neurological Neurological: reports: General weakness - Psychiatric Psychiatric: reports: Anxiety - Endocrine Endocrine: reports: Other (diabetes insulin dependent) - Hematologic/Lymphatic Hematologic/Lymphatic: reports: Anemia (hgb 10.7) - All Other Systems All Other Systems: reports: Reviewed and negative Physical Exam - Vital Signs Temperature: 97.0 C Pulse Rate: 82 Respiratory Rate: 16 O2 Saturation: 98 (ra @ rest) Blood Pressure: 88/48 - Physical Exam General Appearance: positive: Severe distress (related to hemmrhoidal pain), Anxious, Cachetic Eyes Bilateral: positive: Other (periorbital edema) Neck: positive: Trachea midline Cardiovascular: positive: Regular rate & rhythm Respiratory: positive: Diminished in bases. negative: Wheezes Abdomen: positive: Other (cachetic) Skin: positive: Dryness, Other (tanned) Extremities: positive: No pedal edema Neurologic/Psychiatric: positive: Oriented x3, Weakness, Depressed mood/affect Palliative Care - POLST Patient has POLST: No Pain: Pain worsening, Location (Pain acuity hemorrhoidal site, has difficulty sitting, laying, and excruciating with any kind of bowel movement. Her baseline background pain of her lower back, has been controlled with the methadone 10 mg twice daily, gabapentin 300 mg at bedtime and her breakthrough pain medication. This is escalated for over a week secondary to her diarrhea and hemorrhoids. She is concerned given her dumping and frequent stooling that she is not absorbing any of her medications. This is not necessarily a bad observation.) Tiredness/Fatigue: Severe (7-10) Drowsiness/Sedation: Mild (1-3) Nausea: None Depression: Moderate (4-6) Anxiety: Severe (7-10) Dyspnea: Mild (1-3) Anorexia: Weight loss (feels hungary but eating causing diarrhea) Sleep: Sleeps poorly (up with diarrhea; gettting quite exhausted) Performance Status: Patient with further weight loss, some weakness with this. She is able to attend her own ADLs and ambulate around the home. Unable to tell his activity tolerance or pain that is limiting her activity I suspect a little bit of both. I would put her at PPS of 70% - Palliative Care Discussion: Patient is feeling quite overwhelmed with the side effects of her medication, she is wanting to talk to her oncologist regarding the severity of her diarrhea despite aggressive management and medications. Now she has as a result of the severe hemorrhoids. Patient with limited further options, oncologist reports imaging of 05/19 showed unchanged pelvic metastases and surrounding nodes, as well as bowel obstruction most likely not malignant. She is quite tearful today, is quite exhausted from not sleeping, does express uncertainty about how to manage this into the future. Results - Lab Results Lab results reviewed: Yes Lab and Imaging Results: Labs from 910 ED visit to include total protein 7.2; albumin 3.7; WBC 2.9; hemoglobin 10.7; Hematocrit 32.7; sodium 137; potassium 4.0; BUN 21; creatinine 1.3; GFR 45 Impression and Recommendations - Palliative Care Impression: This is a 42-year-old woman who continues With a high level of complexity due to her metastatic advanced colon cancer, recurrent small bowel obstructions, and now with acute side effects from her oral chemotherapy of severe diarrhea. Her goals remain to continue actively pursued treatment for extension of quantity of life. She has a high level of anxiety, significant pain issues, and now acute on chronic pain with her hemorrhoid. Palliative care to provide ongoing support as patient allows, for pain and symptom management and anticipatory guidance Recommendations/Counseling Done: 1. Acute on chronic pain related to her metastatic colon cancer and now presenting with severe pain from a hemorrhoid requiring to ED visits. Patient has no pills left from 05/26 oxycodone 20 mg (100 tabs) and hydromorphone 4 (60 tabs) unauthorized by [employer]; 05/26 52 of 240 oxycodone 30 mg tabs left; recevied 05/26 methadone 10 mg 40 tabs + 60 tabs 06/05 has 111 tabs left to count includes previous prescription. Reviewed contract and signed regarding need to limit use or notify if going to use above prescribed amount for escalating pain. Patient is suppose to be logging but not accurate records reviewed per her reports. Has been noted concern in the home, is aware now will be on pill counts with each visit. Patient has high opioid tolerance and significant pain, Goal is to find an effective pain regimen to support and improve quality of life balance with concerns for overuse 2. Grade 4 diarrhea secondary oral chemotherapy. Patient still presents with symptoms of dehydration, does feel she can catch up with pushing water and Gatorade. Does not want follow-up clinic appointment for IV hydration. She has stopped oral chemotherapy, stools are slowing down, is awaiting further dir ection from oncologist either regarding dose reduction and/or other alternative. 3. Cachexia and weight loss. This is directly related to her diarrhea, dumping syndrome, and ongoing difficulty getting adequate calories. Though of note her total protein is 7.2 and albumin 3.7. Patient does have multiple different strategies she uses when she gets into difficulties like this, encouraged to maximize fluid and caloric intake. 4. Acute hemorrhoid. Patient has seen in ED last night, is using multiple [id number] products as well as strategies. Physician did order her prednisone 30 mg x 5 days, she is diabetic and knows to manage her sugars more aggressively. 5. Advanced care plannning. Remains at high risk for recurrent hospitalizations, has had 4 small bowel obstructions most recent in May, ER visits 11 at [facility] and 2 at [facility] for complicated medical concerns, now on Medicaid and being tracked. She continues quite frail and with ongoing complications related to disease and therapy. Palliative care will continue to provide support, attempting to establish rapport balanced with addressing concerns regarding opioid misuse, patient with high anxiety and difficulty coping regarding her terminal diagnosis. Time Spent: 60 minutes with greater than 50% of this done in counseling regarding opioid use, storage, safety, and needed adherence to contract.
== END 2018-06-12 13:01 | disposition home or self-care (01) ==
LOC: PC 13:00
PROVIDERS: ATTEND Nurse Practitioner Adult Health
DX: Z51.5 Encounter for palliative care (principal); G89.3 Neoplasm related pain (acute) (chronic); C18.9 Malignant neoplasm of colon, unspecified; C78.7 Secondary malignant neoplasm of liver and intrahepatic bile duct; K91.1 Postgastric surgery syndromes; Z79.899 Other long term (current) drug therapy; K64.9 Unspecified hemorrhoids; K52.1 Toxic gastroenteritis and colitis; T45.1X5A Adverse effect of antineoplastic and immunosuppressive drugs, initial encounter; E86.0 Dehydration; E11.9 Type 2 diabetes mellitus without complications; Z79.4 Long term (current) use of insulin; R64 Cachexia; C77.5 Secondary and unspecified malignant neoplasm of intrapelvic lymph nodes; C79.89 Secondary malignant neoplasm of other specified sites; F41.9 Anxiety disorder, unspecified; Z91.14 Patient's other noncompliance with medication regimen
CPT/HCPCS: 99350

== ENCOUNTER 2018-07-08 16:56 | Outpatient (CLI) | payer MEDICAID ==
--- NOTE | 2018-07-08 18:09 | CONSULTATION NOTE ---
Palliative Care Follow Up - Referral Referring Provider: Dr. Santosh Deleon Time of Visit: [id number] Referral setting: Home (Is a taxing considerable effort for the patient leave the home secondary to weakness and escalating pain.) Referral Reason: Metastatic Colon Cancer/Recurrent SBO/Failure to Thrive - Information Sources Records reviewed: Previous records reviewed History/Review of Systems obtained from: Patient Exam limitations: No limitations - History of Present Illness Update Brief HPI Update: This is a 42-year-old woman who presents with a complex history related to her metastatic colon cancer, opioid use disorder, and has continued to have multiple hospitalizations since our last visit, secondary to hemorrhoidal pain, small bowel obstructions, new PEs, recently right DVT, and presents today with progressive failure to thrive. She had 2 ED visits to [facility], related to severe hemorrhoidal pain, has tried multiple interventions topical interventions as well as escalating opiod use, was given steroids that increased her blood sugars but no improvement of acute hemmorhoid. She was finally admitted on 06/19 to [facility], both with small bowel obstruction and also had a surgical intervention for her thrombosed hemorrhoid which was incised and drained at that point in time. She did find some improvement in rectal pain, but on returning home was having increased diarrhea of upward of 30 stools a day. This is despite use of her Lomotil, opium tincture, Imodium, and was continuing to lose weight as well as having increased shortness of breath. She was admitted on 06/23 [facility], and was actually found to be positive for campylobactor gastroenteritis, her c diff was negative. She was discharged on antibiotics, with getting some improvement, had been aggressively hydrated there. She reports that when she was having some increased lower extremity edema. But was also diagnosed with new pulmonary emboli within both lobes, greater on the left than right. Her Enoxaparin was increased to twice daily, and reports she was having escalating pain in back and abdomen. On 06/25 patient maximizing and overusing her oxycodone related to pain, agreed to increase methadone to 10 mg TID, had family vacation planned to [place] hoping to get "away from her cancer", but unfortunately SBO reoccured resulting in hospitalization at [facility] in [place]. She was admitted with a high-grade distal small bowel obstruction, with noted transition point in the left aspect of the pelvic inlet with CT scan reporting related to combination of adhesions and stricturing associated with enterocolic anastomosis. She was also found to have a near occlusive thrombus within right common fermoral vein in her right leg on hospitalization, and her SBO was managed medically. Unfortunately, true to past behaviors with opioid misuse, did not feel they were aggressive enough with her pain management, so continued on her methadone 10 mg 3 times daily, gabapentin 300 mg twice daily, with escalating pain and discomfort was continuing to taking her oxycodone 30 mg tabs for 10-12 in a 24-hour. This was in addition to her IV hydromorphone receiving as part of her stay. She has been counseled multiple times by several providers including myself, as this is true to her pattern, regarding safety of using her own medications during hospitalizations, but catastrophizes she does not get relief and perceives they are undermedicating her. Patient presents today as thin and cachectic, though her weight at 117, she does appear to have most likely about 20-25 pounds of fluid in her lower extremities extending into her sacrum, pelvic area and labia. Her abdominal wall hernia has increased to the size of a small cantaloupe, is reducible, she has escalating pain in her lower pelvis, back, now significant discomfort with her lower extremity edema, as well as reports has recurrent hemorrhoids. She had restarted and is finishing her antibiotics from her [facility] hospital stay, the diarrhea has improved, though still having loose watery stools 2-3 times in the last 24 hours. She is attempting to eat, but presents with symptoms of failure to thrive. She has extensive lower extremity edema, skin is taut, does have evidence of weeping though currently skin intact. Has known DVT in right leg, but both present with significant tightness and discomfort. Patient was willing to explore some regarding end-of-life planning, that gets easily anxious and overwhelmed. Social History - Living Situation Living arrangement: At home Living Situation: With spouse/s.o. Support System: Patient lives at home with and 2 teenage children. Reports has been is very anxious, they are starting to talk about plans for the kids, but have not done anything very concrete. Patient's parents live nearby and are very supportive. Medications/Allergies - Medications Home Medications: Ambulatory Orders Medication Instructions Recorded Confirmed Enoxaparin [Lovenox] 80 mg SQ BID 03/28/18 07/09/18 Insulin Glargine [Lantus Solostar] 5 unit SQ QDBREAKFAST 03/28/18 07/09/18 Insulin Glargine [Lantus Solostar] 18 unit SQ DAILY PM MDD titrate to 03/28/18 07/09/18 BS Insulin Lispro [Humalog Tomy 2 - 8 unit SQ AC MDD sliding scale 03/28/18 07/09/18 Kwikpen] Naloxone HCl [Narcan] 1 spray INH PRN PRN 03/28/18 07/09/18 traZODone [Desyrel] 150 mg PO DAILY PM PRN 03/28/18 07/09/18 Gabapentin 300 mg PO BID MDD titrating 04/11/18 07/09/18 oxyCODONE [Roxicodone] 30 mg PO Q3HR MDD 8/tabs 04/11/18 07/09/18 Opium Tincture 2 - 3 ml PO BID PRN 04/23/18 07/09/18 Loperamide [Imodium] 4 mg PO QID PRN 05/06/18 07/09/18 Methadone HCl 10 mg PO TID 05/28/18 07/09/18 Diphenoxylate/Atropine [Lomotil] 1 tab PO QID PRN 06/13/18 07/09/18 Furosemide 20 mg PO DAILY PRN MDD / b/p 07/09/18 07/09/18 greater than 110/60 - Allergies Allergies/Adverse Reactions: Allergies Allergy/AdvReac Type Severity Reaction Status Date / Time Penicillins Allergy Unknown Verified 03/28/18 15:16 quetiapine [From Seroquel] AdvReac Unknown Verified 03/28/18 15:17 Review of Systems - Constitutional Constitutional: reports: Fatigue, Poor appetite, Weight loss (severe muscle wasting upper extremities/back). denies: Fever, Chills - Cardiovascular Cardiovascular: reports: Edema (increasing LE over last few weeks) - Respiratory Respiratory: reports: SOB with exertion. denies: Cough - Gastrointestinal Gastrointestinal: reports: Abdominal pain, Abdominal distention, Diarrhea (improved), Reflux/heartburn, Bloating, Poor appetite, Early satiety. denies: Nausea - Genitourinary Genitourinary: reports: Other (incontinence of stool) - Musculoskeletal Musculoskeletal: reports: Back pain, Muscle weakness - Integumentary Integumentary: reports: Lesions (dried on LE from weeping), Dryness - Neurological Neurological: reports: General weakness, Memory problems (STM issues) - Psychiatric Psychiatric: reports: Depression, Anxiety - Endocrine Endocrine: reports: Other (diabetes; checking BS BID reports in reasonable ran ge) - Hematologic/Lymphatic Hematologic/Lymphatic: reports: Anemia, Blood clots (new PE; DVT right leg) Physical Exam - Vital Signs Temperature: 96.7 C Pulse Rate: 66 Respiratory Rate: 18 O2 Saturation: 95 (ra @ rest) Blood Pressure: 92/62 - Physical Exam General Appearance: positive: Mild distress, Anxious Eyes Bilateral: positive: Normal inspection ENT: negative: Oral lesions Neck: positive: No JVD, Trachea midline Cardiovascular: positive: Regular rate & rhythm Respiratory: positive: Wheezes (slight exp. wheeze bilat; left greater than right;). negative: No respiratory distress, Rales, Rhonchi Abdomen: positive: Abnml bowel sounds, Tenderness, Other (abdominal wall hernia; protrudes size of cantalope; easily reduced;) Skin: positive: Dryness, Other (thinned stretched) Extremities: positive: Other (taut LE edema up into sacral/pelvic area over ridge of pubis; hands and feet cool to touch; upper extremity severe wasting and through back/rib area) Neurologic/Psychiatric: positive: Oriented x3, Weakness, Depressed mood/affect, Flat affect Palliative Care - POLST Patient has POLST: No Pain: Pain worsening, Location (Patient currently taking methadone 10 mg 3 times daily, gabapentin 300 mg twice daily, oxycodone 30 mg tabs 1-2 tabs 6-8 tabs in 24 hours. Does admit to using 12-14 tabs during time. Of acute bowel obstruction and during hospitalization. Feels pain has D escalated since then, and able to maintain current limits. Patient reports lower abdominal right greater than left, dull background back pain, now with increased discomfort in lower extremities regarding significant lymphedema.) Tiredness/Fatigue: Severe (7-10) Drowsiness/Sedation: Moderate (4-6) Nausea: None Depression: Moderate (4-6) Anxiety: Severe (7-10) Dyspnea: Mild (1-3) Anorexia: Moderate (4-6) Sleep: Variable sleep pattern Constipation: No Feelings of wellbeing/Perceived Quality of Life: Poor, Worsening Performance Status: Patient still able to ambulate, short distances at home. She does have decreased activity tolerance, spending most the time on her couch reclining. Is able to shower and address her ADLs. She does appear to have noted functional decline, would put her at PPS at about 60% - Palliative Care Discussion: Patient discussion is always complicated regarding her advanced disease and deterioration, given her high anxiety, and unwillingness to discuss her ongoing decline. She did report though she has acquiesced, does understand she is not going to return to work, has given this story line up. Did express my worry as far as not beginning to prepare the kids, she reports her is talking to her daughter, but they have as a family had any conversation. She does admit most likely she will not be here next year, when asked what she would want at end of life, she wants to stay at home as long as possible but does not feel like it would be appropriate or helpful for her her family to at home. I did introduce the possibility of [facility], a [facility] hospice for the last weeks of life, she feels it would be easier on family if she were close to home such as at [facility]. She continues to be dreadfully frightened of possible surgery and colostomy/ileostomy though I suspect at this point she would not be a surgical candidate. With her recurrent SBOs, PE/DVT, weight loss, and increasing symptom burden I suspect she is into weeks, not months. She has an appointment with her oncologist next week, is planning to continue chemotherapy, stay positive that she can continue, and her goal is to extend her quantity of life as long as possible. Impression and Recommendations - Palliative Care Impression: This is a 42-year-old woman who continues with a high come level of complexity due to her metastatic advanced colon cancer, recurrent small bowel obstructions, recurrent hospitalizations, and now new PEs/right DVT. Patient presents with increasing pain, anxiety, and depression as well as significant weight loss, lower extremity edema/lymphedema, decreasing functional status and failure to thrive. Palliative care to provide ongoing support as patient allows, for pain and symptom management and anticipatory guidance Recommendations/Counseling Done: 1. Acute on chronic pain with multiple pain generators related to her metastatic colon cancer and sequela of her complications. Patient presents with recurrent hemorrhoidal pain, lower extremity edema and tightness resulting in increased discomfort, increasing pelvic abdominal pain, background back pain, and intermittent and recurring small bowel obstructions with acute and episodic pain. Patient has been counseled multiple times regarding her overuse and now dangerous use of medications during her hospitalization, patient was severe anxiety regarding undermedication of her pain, as well as her inappropriate use with ongoing opioid misuse disorder. Counseling regarding review of safety issues, provider patient agreement, and addressing issue of use for anxiety/chemical coping. Pill count: methadone 10 mg tabs 14 LTC; this is close to TID dosing from last prescription though noted taken through hospitalization unadvised; oxycodone 30 mg tabs 15 LTC from prescription 06/24 240 tabs overused per parameters; acknowledged use through SBO episode every three hours 3 tabs in delaying hospitalization and during. Denies diversion issues regarding previous history is safely locking and storing. Presents with ongoing pain issues; discussed partial week dispensing; will see if [facility] agreeable. Patient continues challenging in the face of escalating pain/advancing disease and opioid misuse disorder. Concern relating absorption of medication given patients ongoing issues with diarrhea/obstructions. Unfortunatley given her cachexia she is not a good candidate for fentanyl patch. Will most likely at EOL need to be on infusion. Patient able to verbalize back providers concern; need to hold opioids with sedation; and stay within 6-8 tabs or notify [facility]. 2. Generalized anxiety disorder. Patient remains resistant to counseling, and enlisting counseling support or exploring fears and concerns. She was able to open up regarding her ongoing decline, and impact on family, and future plans quickly closed that door. She is remaining somewhat consistent with her past coping, which includes denial, and avoidance with information that reveals or informs her current prognosis. 3. Diarrhea. This is multifactorial in origin, including dumping syndrome, recent campylobacter gastroenteritis finishing AB today, Intermittent small bowel obstructions, and difficulty tolerating diet. Patient does use tincture of opium as "last resort", now with recurrent GERD finds it more difficult to tolerate. Using 1-2 times a day, currently not using Imodium or Lomotil. Patient had severe escalation of diarrhea with recent oral chemotherapy, is negative for C. difficile, but continues to struggle with the sequela of now recurrent hemorrhoids. 4. Weight loss. Patient with lower extremity edema, masking most likely underlying baseplate I suspect is between 85 and 90 pounds. Patient has been challenged with the intermittent small bowel obstructions for eating, diarrhea, poor intake, and escalating pain. Patient is fairly persistent, is pushing herself for adequate calories, but it does appear to be aware she is losing ground. 5. Recurrent blood clots. Patient now with recurrent PEs, new right lower DVT. Given patient's thin cachectic nature, concern regarding absorption of medication. 6. Lower extremity edema. I suspect this is multifactorial in the context of multiple fluid challenges over the last couple hospitalizations, as well as increasing lymphedema from abdominal disease and swelling from DVT/clots. Patient prescribed low-dose Lasix, though instructed to hold for 2 days since blood pressure currently 92/62, she will obtain blood pressure cuff instructed not to take less over 110/60. Patient with fluctuating fluid intake, is challenged to stay hydrated, counseled regarding concern in adding to her exacerbating dehydration. Patient has been instructed on lower extremity elevation, given patient's level of pain and discomfort most likely would not tolerate any kind of compression, continues to add to the sequela of her ongoing decline. 7. Advanced care planning. Given patient's ongoing decline, high symptom burden, likely not a candidate for future treatment would be of benefit to transition to hospice given the ongoing complexity of her situation. Patient though remains adverse to considering or counseling regarding her ongoing decline/failure to thrive as result of her advanced colon cancer. Patient at risk for continued frequent hospitalizations regarding her small bowel obstructions, low threshold and tolerance for symptoms regarding her ongoing decline, and concern for being a burden on her family. She did express her goal to not at home and in the hospital. Patient remains FULL CODE, and goal is to continue cancer treatment. Palliative care to continue to provide support as patient allows, provide pain and symptom management, continue to branch credit counselor for safety and anticipatory guidance and provide compassionate presence/approach in this ongoing challenging situation. Time Spent: 60 minutes with greater than 50% of this done in counseling regarding safety use of opioids, compliance with provider patient agreement, pain management, and anticipatory guidance as allowed
== END 2018-07-08 16:57 | disposition home or self-care (01) ==
LOC: PC 16:56
PROVIDERS: ATTEND Nurse Practitioner Adult Health
DX: Z51.5 Encounter for palliative care (principal); G89.3 Neoplasm related pain (acute) (chronic); F11.20 Opioid dependence, uncomplicated; F41.1 Generalized anxiety disorder; A04.5 Campylobacter enteritis; K91.1 Postgastric surgery syndromes; K52.1 Toxic gastroenteritis and colitis; T45.1X5D Adverse effect of antineoplastic and immunosuppressive drugs, subsequent encounter; R62.7 Adult failure to thrive; R63.4 Abnormal weight loss; C18.9 Malignant neoplasm of colon, unspecified; C78.7 Secondary malignant neoplasm of liver and intrahepatic bile duct; K64.5 Perianal venous thrombosis; I26.99 Other pulmonary embolism without acute cor pulmonale; I82.411 Acute embolism and thrombosis of right femoral vein; K43.9 Ventral hernia without obstruction or gangrene; I89.0 Lymphedema, not elsewhere classified; E11.9 Type 2 diabetes mellitus without complications; F32.9 Major depressive disorder, single episode, unspecified; Z79.01 Long term (current) use of anticoagulants; Z79.4 Long term (current) use of insulin; Z79.899 Other long term (current) drug therapy
CPT/HCPCS: 99350

== ENCOUNTER 2018-07-18 16:12 | Outpatient (CLI) | payer MEDICAID ==
--- NOTE | 2018-07-18 16:30 | CONSULTATION NOTE ---
Palliative Care Follow Up - Referral Referring Provider: Dr. Landon Deleon Time of Visit: Referral setting: Home (It is a taxing considerable effort for the patient leave the home secondary to fatigue and pain.) Referral Reason: Metastatic Colon Cancer/Goals of Care - Information Sources Records reviewed: Previous records reviewed History/Review of Systems obtained from: Patient Exam limitations: No limitations - History of Present Illness Update Brief HPI Update: This is a 42-year-old woman who presents with a complex history related to her metastatic colon cancer, who has had multiple hospitalizations secondary to complications regarding her disease process. She did see her oncologist this last week 07/15, who has made the recommendation of discontinuation of all systemic therapy and shared with her there is no standard or experimental treatment options he has left to offer. She reports he did have a conversation briefly about hospice, as well as he encouraged her to follow-up on a POLST. She did share with me her Facebook posting, that does chronicle her journey with colon cancer, along with the understanding that she is coming to end of life. She chooses to remain quite positive, is still hoping for more time with her family, increased quality of life, but aware her time is limited. Her history is quite complex as presented per her oncologisst, as she presented in 2014 with sepsis and ischemic bowel, requiring a subtotal colectomy with stage II sigmoid cancer, treated with Oxaliplatin and CAD stated being at that point in time. She did develop recurrent disease in 2016 with right hepatic metastases, had resection but experienced significant postop complications, including infection, abscess, and thrombosis. She received postoperatively 4 months of Daisy OT can, Stated being, and Avastin but was complicated by hand- foot syndrome as well as pulmonary embolism. She started on TAS 102 October 2017, she did have surgery to attempt resection of the right adnexal mass which was unsuccessful due to extensive pelvic disease, unfortunately developed pelvic abscess requiring external drain and developed right thigh myofascial cellulitis/myositis requiring debridement and drainage in January 2018. She has since had multiple hospitalizations regarding small bowel obstruction, recurrent pulmonary emboli, severe hemorrhoids and uncontrolled pain. Today she presents is feeling somewhat better, she had finally some relief from her diarrhea, for the last 3 days. She has been eating small amounts every 2-3 hours, without recurrence of this. She has definitely lost significant amount more of weight, weighing in today at 105, though she does have lower extremity edema, but does report increasing pain. She reports she is a little gassy, does not think she has obstructive symptoms at this point in time, she is not had any recurrent shortness of breath, she has not been eating very much, so has not required much insulin. She continues to overuse her pain medications, she has used 240 tabs of oxycodone 30 mg in the last 10 days. She is at methadone 10 mg 3 times daily, gabapentin 300 mg twice daily. Her pain is mostly lower back, bilateral rib and shoulder pain, worsening in the evenings. She also attributed her frequent use, to her lower extremity edema and pain, this is continued to improve, she has been able to tolerate low dose of Lasix 20 mg daily, previous with the severe diarrhea she is not been able to trial this. Does appear her DVT in her right leg is improving as well, though her legs are quite taut and shiny, and do have a history of weeping. She was able to sleep in her bed at night, she has been having some incontinence of diarrhea, but feels currently that is under control. Social History - Living Situation Living arrangement: At home Living Situation: With spouse/s.o., With family Support System: Her has taken time off work, she reports he is not doing well coping with this. She is trying to get her daughter into her primary care provider, as she is quite anxious and asked for an antidepressant. She reports her son, has been talking the school counselor. She is quite concerned overall about support for her family, and does feel hospice at this point in time would serve as a way to access support and counseling for her family. This is a primary concern and goal for her. She does have her parents who are also supporting them financially, as well as practically. She reports her mother though is having a lot of struggling and difficulty with this. Medications/Allergies - Medications Home Medications: Ambulatory Orders Medication Instructions Recorded Confirmed Enoxaparin [Lovenox] 80 mg SQ DAILY 03/28/18 07/18/18 Insulin Glargine [Lantus Solostar] 5 unit SQ QDBREAKFAST PRN 03/28/18 07/18/18 Insulin Glargine [Lantus Solostar] 18 unit SQ DAILY PM PRN MDD 03/28/18 07/18/18 titrate to BS Insulin Lispro [Humalog Tomy 2 - 8 unit SQ AC PRN MDD sliding 03/28/18 07/18/18 Kwikpen] scale Naloxone HCl [Narcan] 1 spray INH PRN PRN 03/28/18 07/18/18 traZODone [Desyrel] 150 mg PO DAILY PM PRN 03/28/18 07/18/18 Gabapentin 300 mg PO TID MDD titrating 04/11/18 07/18/18 oxyCODONE [Roxicodone] 60 mg PO Q4HR PRN MDD 10 tabs 04/11/18 07/18/18 Opium Tincture 2 - 3 ml PO BID PRN 04/23/18 07/18/18 Loperamide [Imodium] 4 mg PO QID PRN 05/06/18 07/18/18 Methadone HCl 10 mg PO .10 MG/10MG/15 MG MDD 05/28/18 07/18/18 titrating up 5 mg q 3 days Diphenoxylate/Atropine [Lomotil] 1 tab PO QID PRN 06/13/18 07/18/18 Furosemide 20 mg PO DAILY PRN MDD hold for 07/09/18 07/18/18 dizzyness - Allergies Allergies/Adverse Reactions: Allergies Allergy/AdvReac Type Severity Reaction Status Date / Time Penicillins Allergy Unknown Verified 03/28/18 15:16 quetiapine [From Seroquel] AdvReac Unknown Verified 03/28/18 15:17 Review of Systems - Constitutional Constitutional: reports: Fatigue, Weakness, Weight loss (105 on her scales today per report). denies: Fever, Chills - Ears, Nose & Throat Ears, Nose & Throat: reports: Dry mouth - Cardiovascular Cardiovascular: reports: Edema (improved), Lightheadedness, Decr. exercise tolerance - Respiratory Respiratory: reports: SOB with exertion. denies: Cough, Wheezing, SOB at rest - Gastrointestinal Gastrointestinal: reports: Abdominal pain, Abdominal distention, Bloating, Early satiety. denies: Diarrhea, Nausea - Genitourinary Genitourinary: denies: Incontinence - Musculoskeletal Musculoskeletal: reports: Back pain, Muscle aches, Muscle weakness - Integumentary Integumentary: reports: Dryness - Neurological Neurological: reports: General weakness - Psychiatric Psychiatric: reports: Anxiety - Endocrine Endocrine: reports: Other (diabetes type I; has had insulin on hold unless eating larger amounts) - Hematologic/Lymphatic Hematologic/Lymphatic: reports: Blood clots (PE/right DVT) - All Other Systems All Other Systems: reports: Reviewed and negative Physical Exam - Vital Signs Temperature: 97.7 C Pulse Rate: 60 Respiratory Rate: 18 O2 Saturation: 95 (ra @ rest) Blood Pressure: 92/58 (with small cuff) - Physical Exam General Appearance: positive: No acute distress, Anxious Eyes Bilateral: positive: Normal inspection Neck: positive: Trachea midline Cardiovascular: positive: Regular rate & rhythm Respiratory: positive: No respiratory distress, Diminished in bases. negative: Wheezes, Rales, Rhonchi Abdomen: positive: Soft, Abnml bowel sounds, Distended, Other (abdominal hernia; easily reduced) Skin: positive: Pallor, Dryness, Other (skin shiney on LE; evidence of weeping b ut skin intact) Extremities: positive: Pedal edema (2-3+ up to mid thigh; reports right labia and swelling improved; some residual swelling over pubis bone) Neurologic/Psychiatric: positive: Oriented x3, Mood/affect nml, Weakness Palliative Care - POLST Patient has POLST: Yes POLST Status: DNR, Selective Treatment Pain: Pain worsening, Location (see HPI) Tiredness/Fatigue: Moderate (4-6) Drowsiness/Sedation: Mild (1-3) Nausea: None Depression: Mild (1-3) Anxiety: Moderate (4-6) Dyspnea: None Anorexia: Mild (1-3) Sleep: Sleep improved Constipation: No Feelings of wellbeing/Perceived Quality of Life: Fair, Worsening Performance Status: Patient spending most the time on her couch, she is ambulatory to the home. She continues to try and do household tasks that they are quite exhausting for her. She reports that just who she is. She is able to shower independently, I would put her at a PPS of 60% - Palliative Care Discussion: Patient shared her concern for her family, she has spoken to her parents and and discussed plans and choices. She is concerned about dying in her own home, though she recognizes this is a possibility. She would like to be in an alternative setting, though does not want to be in a custodial. We did discuss the limitations but also the possibility of [facility] house, But may be also in another alternative home as well. This seems somewhat distant in her conversation and with some ambuiguity regarding this. Her goals are to have her pain controlled, to have counseling for her family, and to enjoy what time she has left. She does have a go fund me account p up by her cousin, and hopes to go to [place] with her family. The patient has fairly advanced disease, most likely in the weeks as far as prognosis, and at high risk for sequela of another bowel obstruction and/or blood clots. We did explore if there is anything immediate particularly legally and or urgent that would need to be addressed, as she could not think of anything specific. She is working with a data management associate, encouraged her to reach out given that we are hoping for the best, but uncertainty exists with her diagnosis and journey thus far. We did talk about D POA, it does fall to her Gee. She does feel like he would be able to speak for her if she were unable, and does trust his decision making at this point in time. She does see her father, as a backup if needed. At this point she does not want to formalize that in a D POA document. We did continue on and discussed the POLST, she does not want to be resuscitated, she does understand the implications of this, and the need to have this at her home. Though she understands with hospice she is not to be hospitalized, nor does she want a in the hospital, she did pick selected treatments given concerns over obstructing, will need further support around these decisions as they arise. Impression and Recommendations - Palliative Care Impression: This is a jeffy 42-year-old woman who has metastatic colon cancer with progressive decline. She does present with high symptom burden, fatigue, weight loss, worsening pain, anxiety, and functional decline. Patient without further treatment options, does want to focus on quality of life, is hopeful for extended period of time yet to be with her family. In discussing goals of care, patient will transition to hospice services. Recommendations/Counseling Done: 1. Pain of neoplastic origin. This is multi-factorial. Is also been quite challenging given patient's high opioid tolerance, progressive disease and worsening pain, as well as opioid use disorder. Patient had used all 240 tabs of her oxycodone 30 mg, over 10-day. Though pointed out this was not consistent with what she was reporting was using, she did admit to using 60 mg every 2-3 hours, particularly when she was having increasing pain with her diarrhea last week. Discussed in the context of safety, will discuss with hospice on weekly allotments to better track. We will go ahead and increase methadone, currently on 10 mg 3 times daily, will increase to 5 mg in 24-hour period every 3-4 days. Hospice to admit next week, can more aggressively titrate when patient has oversight. Increase to gabapentin 300 mg to 3 times daily as well. Prescription provided for oxycodone 30 mg #240 tabs, as well as gabapentin 300 mg capsules #90. 2. Diarrhea. This is currently managed with Imodium, it is a fine balance for her as far as constipation versus obstruction versus diarrhea and fluid imbalance. Patient reports has been better controlled over the last 2-3 days, allowing her to have increased intake, she does feel better given this scenario. 3. Lower extremity edema. This is multifactorial as well, do believe her DVT is probably dissolving with increased circulation particularly in the right, she has been able to tolerate the furosemide 20 mg daily for the last 2-3 days. She knows if she has recurrent dizziness, or diarrhea she is to stop this. Both her hands and feet are quite cool to touch. Instructed to lotion LE regularly to decrease risk of cellulitis. 4. Diabetes type 1. Patient does manage on her own, has been holding insulin and less she is eating a large amount. She is hoping with frequent small meals, to gain some weight and some strength. She has been able to do better with her hydration. 5. Advanced care planning. This continues to be very difficult to navigate with patient, but did review her goals of care, complete the [facility], and agreement for transition to hospice, [facility] Will need planning for EOL given patients concerns/fears, and hope to be in an alternative setting. Patient's was not part of this conversations, did discuss need for POLST to be available if access EMS. Time Spent: Time spent 75 minutes with greater than 50% of this done in counseling regarding goals of care, anticipatory guidance, pain and symptom management and coordination of care with hospice team
== END 2018-07-18 16:13 | disposition home or self-care (01) ==
LOC: PC 16:12
PROVIDERS: ATTEND Nurse Practitioner Adult Health
DX: Z51.5 Encounter for palliative care (principal); G89.3 Neoplasm related pain (acute) (chronic); R19.7 Diarrhea, unspecified; R60.0 Localized edema; I82.401 Acute embolism and thrombosis of unspecified deep veins of right lower extremity; E10.9 Type 1 diabetes mellitus without complications; C18.9 Malignant neoplasm of colon, unspecified; C78.7 Secondary malignant neoplasm of liver and intrahepatic bile duct; Z90.49 Acquired absence of other specified parts of digestive tract; Z86.711 Personal history of pulmonary embolism; Z79.4 Long term (current) use of insulin; Z79.899 Other long term (current) drug therapy; Z66 Do not resuscitate; Z79.891 Long term (current) use of opiate analgesic
CPT/HCPCS: 99350

== ENCOUNTER 2018-08-13 18:22 | Emergency (ER) | payer MEDICAID ==
--- NOTE | 2018-08-13 19:49 | ED Physician Documentation ---
PD HPI HEAD INJURY - Stated complaint Stated Complaint: CHIN LAC - Chief complaint Chief Complaint: Trauma Hd/Nk - History obtained from History obtained from: Patient - History of Present Illness Mechanism of head injury: Fell (tripped on uneven walkway/ fell forward and struch d) Where head injury occurred: Street Timing - onset: Today Location of injury: Front (chin laceration and teeth injur) Associated symptoms: Other (chipped several teeth and cut her chin.). No: LOC, AMS Review of Systems Skin: denies: Rash, Abrasion (s) PD PAST MEDICAL HISTORY - Past Medical History Cardiovascular: Pulmonary embolism Respiratory: Shortness of breath Endocrine/Autoimmune: Type 1 diabetes GI: Other MANAGER OF HEALTH: Ovarian cancer HEENT: Other Psych: Depression, Anxiety Musculoskeletal: Chronic back pain Other Past Medical History: Has stage IV colon cancer - Past Surgical History General: Cholecystectomy, Bowel surgery, Hiatal hernia repair, Liver surgery, Colonoscopy, Other - Present Medications Home Medications: Ambulatory Orders Medication Instructions Recorded Confirmed Enoxaparin [Lovenox] 80 mg SQ DAILY 03/28/18 07/18/18 Insulin Glargine [Lantus Solostar] 5 unit SQ QDBREAKFAST PRN 03/28/18 07/18/18 Insulin Glargine [Lantus Solostar] 18 unit SQ DAILY PM PRN MDD 03/28/18 07/18/18 titrate to BS Insulin Lispro [Humalog Tomy 2 - 8 unit SQ AC PRN MDD sliding 03/28/18 07/18/18 Kwikpen] scale Naloxone HCl [Narcan] 1 spray INH PRN PRN 03/28/18 07/18/18 traZODone [Desyrel] 150 mg PO DAILY PM PRN 03/28/18 07/18/18 Gabapentin 300 mg PO TID MDD titrating 04/11/18 07/18/18 oxyCODONE [Roxicodone] 60 mg PO Q4HR PRN MDD 10 tabs 04/11/18 07/18/18 Opium Tincture 2 - 3 ml PO BID PRN 04/23/18 07/18/18 Loperamide [Imodium] 4 mg PO QID PRN 05/06/18 07/18/18 Methadone HCl 10 mg PO .10 MG/10MG/15 MG MDD 05/28/18 07/18/18 titrating up 5 mg q 3 days Diphenoxylate/Atropine [Lomotil] 1 tab PO QID PRN 06/13/18 07/18/18 Furosemide 20 mg PO DAILY PRN MDD hold for 07/09/18 07/18/18 dizzyness - Allergies Allergies/Adverse Reactions: Allergies Allergy/AdvReac Type Severity Reaction Status Date / Time Penicillins Allergy Unknown Verified 08/13/18 18:53 quetiapine [From Seroquel] AdvReac Unknown Verified 08/13/18 18:53 - Social History Does the pt smoke?: No Smoking Status: Never smoker Does the pt drink ETOH?: No Does the pt have substance abuse?: No - Immunizations Immunizations are current?: Yes - POLST Patient has POLST: Yes PD ED PE NORMAL - Vitals Vital signs reviewed: Yes - General General: Alert and oriented X 3, No acute distress, Well developed/nourished, Other (several front area chips on te ) - HEENT HEENT: No: Pharynx benign (underside chin with laceration 1.5 cm, without gravel nor dirt. ) - Neck Neck: Supple, no meningeal sign, No adenopathy - Cardiac Cardiac: RRR, No murmur - Respiratory Respiratory: No respiratory distress, Clear bilaterally Results - Vitals Vitals: Oxygen O2 Source Room air - Labs Labs: Laboratory Tests 08/13/18 21:00 POC Whole Bld Glucose 239 H Procedures - Laceration (location) chin Length in cm: 1.5 Wound type: Into subcut fat, Clean Neurovascular status: Sensory intact, Motor intact Anesthesia: LET PD MEDICAL DECISION MAKING - ED course Complexity details: considered differential, d/w patient Departure - Departure Disposition: 01 Home, Self Care Clinical Impression: Fall, accidental Qualifiers: Encounter type: initial encounter Qualified Code(s): W19.XXXA - Unspecified fall, initial encounter Chin laceration Qualifiers: Encounter type: initial encounter Qualified Code(s): S01.81XA - Laceration without foreign body of other part of head, initial encounter Dental injury Qualifiers: Encounter type: initial encounter Qualified Code(s): S09.93XA - Unspecified injury of face, initial encounter Condition: Stable Record reviewed to determine appropriate education?: Yes Instructions: ED Laceration Chin Sutr Tape Comments: It is okay to wash and shower. Clean off the wound twice a day with soap and water, or peroxide and water. Apply some antibiotic ointment to it to keep it moist. Also to watch for signs of infection such as purulence, redness or increasing pain. Return to your primary care or the ER at the specified time for suture removal. Suture removal 7-10 days. Follow-up with dentist tomorrow as planned. Discharge Date/Time: 08/13/18 21:34
[2018-08-13] MEDS ORDERED: HYDROmorphone 1 MG/ML CARPUJECT IM STA (20:08)
[2018-08-13] MEDS ORDERED: LIDOCAINE-EPINEPH-TETRACAINE 3 ML SYRINGE TOP STA (20:09)
--- NOTE | 2018-08-13 20:45 | CT Report ---
Reason: fall and struck chin; on Lovenox Procedure Date: 08/13/2018 Accession Number: [id number] / [id number] Procedure: CT - Head W/O CPT Code: FULL RESULT: EXAM: CT HEAD EXAM DATE: 08/13/2018 08:37 PM. CLINICAL HISTORY: Fall and struck chin; on Lovenox. COMPARISON: None. TECHNIQUE: Multiaxial CT images were obtained from the foramen magnum to the vertex. Reformats: Sagittal and coronal. IV contrast: None. In accordance with CT protocol optimization, one or more of the following dose reduction techniques were utilized for this exam: automated exposure control, adjustment of mA and/or KV based on patient size, or use of iterative reconstructive technique. FINDINGS: Parenchyma: No intraparenchymal hemorrhage. No evidence of mass, midline shift, or CT findings of infarction. Batista-white differentiation is distinct. Extraaxial Spaces: Normal for age. No subdural or epidural collections identified. Ventricles: Normal in size and position. Sinuses and Orbits: Imaged paranasal sinuses, orbits, and mastoids show no significant abnormality. Bones: No evidence of fracture or calvarial defect. Other: None. IMPRESSION: No acute intracranial abnormality. RADIA
[2018-08-13 20:49] VITALS: BP 84/40
== END 2018-08-13 21:34 | disposition home or self-care (01) ==
LOC: ED 18:22
DX: S01.81XA Laceration without foreign body of other part of head, initial encounter (principal); S09.93XA Unspecified injury of face, initial encounter; W01.0XXA Fall on same level from slipping, tripping and stumbling without subsequent striking against object, initial encounter; Y92.410 Unspecified street and highway as the place of occurrence of the external cause; K08.89 Other specified disorders of teeth and supporting structures; Z85.43 Personal history of malignant neoplasm of ovary; C18.9 Malignant neoplasm of colon, unspecified; E11.9 Type 2 diabetes mellitus without complications; Z86.711 Personal history of pulmonary embolism; Z79.01 Long term (current) use of anticoagulants
CPT/HCPCS: 12011; 70450; 96372; 99282; 99283; J1170

== ENCOUNTER 2018-08-23 00:21 | Outpatient (CLI) | payer MEDICAID | END 2018-08-23 00:22 | disposition short-term general hospital (02) | LOC: EMS 00:21 | PROVIDERS: ATTEND Surgery | DX: R46.4 Slowness and poor responsiveness (principal) | CPT/HCPCS: A0425; A0429; A0999 ==